=== PATIENT | male | born 1945 | race Caucasian/White ===

== ENCOUNTER 2021-06-26 16:18 | Inpatient (IN) | payer BC, MEDICARE ==
[2021-06-26] MEDS ORDERED: SODIUM CHLORIDE 0.9% 1,000 ML IV STA (16:27)
--- NOTE | 2021-06-26 16:33 | ED ---
General Adult HPI - General Chief complaint: Fall Stated complaint: Fall Time Seen by Provider: 06/26/21 16:20 Source: patient, EMS, RN notes reviewed Mode of arrival: EMS Limitations: physical limitation - History of Present Illness Initial comments: Patient is a pleasant 76-year-old male presenting to the emergency department following a fall. Patient was on a stepladder, approximately 10 feet high. Patient was cutting a branch down with a branch hit the ladder and patient fell onto his left side on the grass. Patient unclear if he struck his head. No headache. No confusion. No loss of consciousness. Minimal neck discomfort. Patient does have some discomfort left ribs, but increases with deep breaths. No dyspnea. No abdominal pain. No back pain. Patient also has left hip pain that is mild at this time however increases with movement. Patient was given 7 of morphine by EMS. Patient does not want further pain medication at this time. - Related Data Home Medications Medication Instructions Recorded Confirmed Garlic 100 mg PO DAILY 06/26/21 06/26/21 Turmeric Root Extract [Turmeric] 500 mg PO DAILY 06/26/21 06/26/21 Ubidecarenone [Co Q-10] 100 mg PO DAILY 06/26/21 06/26/21 Vitamin B Complex 1 cap PO DAILY 06/26/21 06/26/21 Zinc Gluconate [Zinc] 50 mg PO DAILY 06/26/21 06/26/21 Allergies Allergy/AdvReac Type Severity Reaction Status Date / Time No Known Allergies Allergy Verified 06/26/21 17:33 Review of Systems ROS Statement: Those systems with pertinent positive or pertinent negative responses have been documented in the HPI. ROS Other: All systems not noted in ROS Statement are negative. Constitutional: Denies: fever Eyes: Denies: eye pain ENT: Denies: ear pain Respiratory: Denies: cough, dyspnea Cardiovascular: Reports: as per HPI Endocrine: Denies: fatigue Gastrointestinal: Denies: abdominal pain Genitourinary: Denies: dysuria Musculoskeletal: Reports: as per HPI. Denies: back pain Skin: Denies: rash Neurological: Denies: headache, weakness, confusion Past Medical History Past Medical History: Cancer Additional Past Medical History / Comment(s): hx polyps, hx skin cancer History of Any Multi-Drug Resistant Organisms: None Reported Past Surgical History: Hernia Repair, Orthopedic Surgery Additional Past Surgical History / Comment(s): fx left arm-plate later removed Past Anesthesia/Blood Transfusion Reactions: No Reported Reaction Past Psychological History: No Psychological Hx Reported Past Alcohol Use History: Occasional Past Drug Use History: None Reported - Past Family History Father Family Medical History: Cancer Sister(s) Family Medical History: Cancer General Exam Limitations: physical limitation General appearance: alert, in no apparent distress Head exam: Present: other (Minimal abrasion left eyebrow) Eye exam: Present: normal appearance, PERRL, EOMI. Absent: nystagmus ENT exam: Present: normal oropharynx Neck exam: Present: tenderness (Minimal diffuse tenderness. C-collar is present.) Respiratory exam: Present: normal lung sounds bilaterally, chest wall tenderness (Left lateral) Cardiovascular Exam: Present: regular rate, normal rhythm GI/Abdominal exam: Present: soft, tenderness (Mild tenderness left upper quadrant) Extremities exam: Present: tenderness (Left lateral hip limiting range of motion). Absent: calf tenderness Back exam: Present: normal inspection. Absent: vertebral tenderness Neurological exam: Present: alert, oriented X3, CN II-XII intact. Absent: motor sensory deficit Expanded Sensory exam: Upper Extremity Light Touch: Normal, Lower Extremity Light Touch: Normal Motor strength exam: RUE: 5, LUE: 5, RLE: 5, LLE: 5 Eye Response: (4) open spontaneously Motor Response: (6) obeys commands Verbal Response: (5) oriented Psychiatric exam: Present: normal affect, normal mood Skin exam: Present: abrasion (Minimal left eyebrow) Course Vital Signs 06/26/21 06/26/21 16:19 18:39 Temperature 98.9 F Pulse Rate 99 98 Respiratory 18 18 Rate Blood Pressure 164/83 142/82 O2 Sat by Pulse 97 96 Oximetry - Reevaluation(s) Reevaluation #1: 06/26/21 18:41 Dr. Payton has been paged for admission 06/26/21 18:45 Case was discussed with Dr. Del Angel, who will admit. EKG Findings - EKG Comments: EKG Findings:: Sinus rhythm with rate of 96. NM 169. QRS 90. QT 361. QTC 414. Normal axis. Normal QRS. No acute ST change. Medical Decision Making - Medical Decision Making Patient reevaluated and updated. - Lab Data Result diagrams: 06/26/21 16:39 06/26/21 16:30 Lab Results 06/26/21 06/26/21 06/26/21 Range/Units 16:30 16:39 16:40 WBC 15.4 H (3.8-10.6) k/uL RBC 3.80 L (4.30-5.90) m/uL Hgb 12.1 L (13.0-17.5) gm/dL Hct 36.5 L (39.0-53.0) % MCV 96.0 (80.0-100.0) fL MCH 31.8 (25.0-35.0) pg MCHC 33.2 (31.0-37.0) g/dL RDW 13.3 (11.5-15.5) % Plt Count 117 L (150-450) k/uL MPV 8.5 Neutrophils % 81 % Lymphocytes % 13 % Monocytes % 3 % Eosinophils % 1 % Basophils % 0 % Neutrophils # 12.5 H (1.3-7.7) k/uL Lymphocytes # 2.1 (1.0-4.8) k/uL Monocytes # 0.5 (0-1.0) k/uL Eosinophils # 0.2 (0-0.7) k/uL Basophils # 0.0 (0-0.2) k/uL Sodium 134 L (137-145) mmol/L Potassium 3.7 (3.5-5.1) mmol/L Chloride 107 (98-107) mmol/L Carbon Dioxide 21 L (22-30) mmol/L Anion Gap 6 mmol/L BUN 23 H (9-20) mg/dL Creatinine 1.23 (0.66-1.25) mg/dL Est GFR (CKD-EPI)AfAm 66 (>60 ml/min/1.73 sqM) Est GFR (CKD-EPI)NonAf 57 (>60 ml/min/1.73 sqM) Glucose 117 H (74-99) mg/dL Calcium 9.0 (8.4-10.2) mg/dL Total Bilirubin 0.5 (0.2-1.3) mg/dL AST 62 H (17-59) U/L ALT 37 (4-49) U/L Alkaline Phosphatase 69 (38-126) U/L Total Protein 6.8 (6.3-8.2) g/dL Albumin 3.9 (3.5-5.0) g/dL Serum Alcohol <10 mg/dL Blood Type A Positive Blood Type Confirm Blood Type Recheck No Previous Record Bld Type Recheck Status CABO Indicated Antibody Screen NEGATIVE Spec Expiration Date 06/29/2021 - 233906/26/21 Range/Units 16:45 WBC (3.8-10.6) k/uL RBC (4.30-5.90) m/uL Hgb (13.0-17.5) gm/dL Hct (39.0-53.0) % MCV (80.0-100.0) fL MCH (25.0-35.0) pg MCHC (31.0-37.0) g/dL RDW (11.5-15.5) % Plt Count (150-450) k/uL MPV Neutrophils % % Lymphocytes % % Monocytes % % Eosinophils % % Basophils % % Neutrophils # (1.3-7.7) k/uL Lymphocytes # (1.0-4.8) k/uL Monocytes # (0-1.0) k/uL Eosinophils # (0-0.7) k/uL Basophils # (0-0.2) k/uL Sodium (137-145) mmol/L Potassium (3.5-5.1) mmol/L Chloride (98-107) mmol/L Carbon Dioxide (22-30) mmol/L Anion Gap mmol/L BUN (9-20) mg/dL Creatinine (0.66-1.25) mg/dL Est GFR (CKD-EPI)AfAm (>60 ml/min/1.73 sqM) Est GFR (CKD-EPI)NonAf (>60 ml/min/1.73 sqM) Glucose (74-99) mg/dL Calcium (8.4-10.2) mg/dL Total Bilirubin (0.2-1.3) mg/dL AST (17-59) U/L ALT (4-49) U/L Alkaline Phosphatase (38-126) U/L Total Protein (6.3-8.2) g/dL Albumin (3.5-5.0) g/dL Serum Alcohol mg/dL Blood Type Blood Type Confirm A Positive Blood Type Recheck Bld Type Recheck Status Antibody Screen Spec Expiration Date - Radiology Data Radiology results: report reviewed (CT brain and cervical spine show no acute process. Computed tomography scan chest abdomen pelvis shows small left pneumohemothorax as well as 11th rib fracture as discussed with radiologist), image reviewed (Chest x-ray and pelvis x-ray shows no acute process) Disposition Clinical Impression: Fall, Rib fracture, Hemopneumothorax on left Disposition: ADMITTED IP TO THIS HOSP Is patient prescribed a controlled substance at d/c from ED?: No Referrals: None,Stated [Primary Care Provider] - 1-2 days Time of Disposition: 18:41
[2021-06-26 17:02] LABS: Basophils % (A) 0 %; Eosinophils # (A) 0.2 k/uL (0-0.7); Eosinophils % (A) 1 %; HCT 36.5 % (39.0-53.0); HGB 12.1 gm/dL (13.0-17.5); Lymphocytes # (A) 2.1 k/uL (1.0-4.8); Lymphocytes % (A) 13 %; MCH 31.8 pg (25.0-35.0); MCHC 33.2 g/dL (31.0-37.0); Mean Platelet Volume 8.5; Monocytes # (A) 0.5 k/uL (0-1.0); Monocytes % (A) 3 %; Neutrophils # (A) 12.5 k/uL (1.3-7.7); Neutrophils % (A) 81 %; Platelet Count 117 k/uL (150-450); RDW 13.3 % (11.5-15.5); WBC 15.4 k/uL (3.8-10.6)
[2021-06-26] MEDS ORDERED: MORPHINE SULFATE 4 MG/ML SYRINGE IVP STA ×3 (17:05→18:39)
[2021-06-26 17:08] LABS: ALT 37 U/L (4-49); AST 62 U/L (17-59); African American GFR (CKD) 66 (>60 ml/min/1.73 sqM); Albumin 3.9 g/dL (3.5-5.0); Alcohol <10 mg/dL; Alkaline Phosphatase 69 U/L (38-126); Anion Gap 6 mmol/L; Blood Urea Nitrogen 23 mg/dL (9-20); Carbon Dioxide 21 mmol/L (22-30); Chloride 107 mmol/L (98-107); Glucose 117 mg/dL (74-99); Non-African American GFR(CKD) 57 (>60 ml/min/1.73 sqM); Potassium 3.7 mmol/L (3.5-5.1); Sodium 134 mmol/L (137-145); Total Bilirubin 0.5 mg/dL (0.2-1.3); Total Protein 6.8 g/dL (6.3-8.2)
--- NOTE | 2021-06-26 17:57 | XR ---
EXAMINATION TYPE: XR Hip LT and AP Pelvis DATE OF EXAM: 06/26/2021 COMPARISON: NONE HISTORY: Pain TECHNIQUE: 3 views FINDINGS: The pelvic ring is intact. Proximal left femur and hip joint appear normal. Sacroiliac join ts are intact. Hip joint spaces are fairly normal. IMPRESSION: Negative pelvis and left hip exam.
--- NOTE | 2021-06-26 17:58 | XR ---
EXAMINATION TYPE: XR chest 1V portable DATE OF EXAM: 06/26/2021 COMPARISON: NONE HISTORY: Pain TECHNIQUE: 2 views FINDINGS: There is no heart failure nor confluent pneumonic infiltrate. Costophrenic angles are clear . There are chest leads. IMPRESSION: No active cardiopulmonary disease. Normal heart.
--- NOTE | 2021-06-26 18:16 | CT ---
EXAMINATION TYPE: CT brain williamine wo con DATE OF EXAM: 06/26/2021 COMPARISON: None HISTORY: Trauma, fall from 10 foot ladder, landing on left side. Hip and rib pain. CT DLP: 1451.8 mGycm Automated exposure control for dose reduction was used. Ventricles have normal size. There is no mass effect or midline shift. There is no sign of intracrani al hemorrhage. There is focal scalp soft tissue swelling in the left frontal and temporal region. Santhosh varium is intact. The skull base is intact. There is normal aeration of the mastoid sinuses. The cervical vertebra have normal alignment. The posterior elements are intact. Disc spaces are fairl y normal. There is no compression fracture. Prevertebral soft tissues are intact. IMPRESSION: There is mild left sided scalp soft tissue swelling. No acute intracranial abnormality. Minor degenerative changes in the cervical spine. No fracture.
--- NOTE | 2021-06-26 18:41 | CT ---
EXAMINATION TYPE: CT ChestAbdPelvis w con DATE OF EXAM: 06/26/2021 COMPARISON: None HISTORY: Trauma, fall from 10 foot ladder, landing on left side. Hip and rib pain. CT DLP: 1563.5 mGycm Automated exposure control for dose reduction was used. CONTRAST: Performed with IV Contrast, patient injected with 100 mL of Isovue 300. Images obtained from the thoracic inlet to the floor of the pelvis with IV contrast. There is infiltrate and atelectasis posterior left lower lobe. Heart size is normal. There is no medi astinal adenopathy. There are no hilar masses. There is very small left pneumothorax less than 3%. Liver spleen stomach and pancreas appear intact. The bile ducts are not dilated. Gallbladder appears normal. There is no adrenal mass. Kidneys show satisfactory contrast opacification. There is no hydronephrosi s. Ureters are not dilated. Bladder distends smoothly. There is no inguinal hernia. There is some april ear density in the pelvis on the left lateral pelvic sidewall consistent with hemorrhage. This measur es up to 1 cm in thickness. There is no retroperitoneal adenopathy. There is no mesenteric edema. No ascites or free air. No sign of a bowel obstruction. Appendix is posterior and appears normal. Thoracic and lumbar vertebra appear intact. No compression fracture. There is possible hairline fract ure of the anterior left acetabulum. There is fracture of the lateral mass of the sacrum on the left side adjacent to the sacroiliac joint. There is left ischium fracture. There is fracture of the poste rior left 11th rib. No displacement. IMPRESSION: Acute fracture left posterior 11th rib. There is infiltrate and atelectasis is at both lung bases. Sm all left side pneumothorax. Small left pleural effusion consistent with hemothorax. Exam was discusse d with emergency room attending staff at 6:30 PM. There is nondisplaced fracture of the lateral mass of the sacrum on the left side as well as very lik christine a nondisplaced hairline left acetabular fracture. There is fracture of the left ischium.
[2021-06-26] MEDS ORDERED: NALOXONE 0.4 MG/ML 1 ML VIAL IV PRN (18:45)
[2021-06-26] MEDS ORDERED: ONDANSETRON 4 MG/2 ML VIAL IVP PRN (18:45)
[2021-06-26] MEDS ORDERED: HYDROcodone/APAP 5-325MG 1 EACH TAB PO PRN (18:45)
[2021-06-26] MEDS ORDERED: HYDROmorphone 1 MG/ML 1 ML SYRINGE IVP STA (18:47)
[2021-06-26] MEDS: HYDROcodone/APAP 5-325MG 1 EACH TAB PO PRN (22:05)
[2021-06-26 22:14] LABS: Appearance,Urine Clear (Clear); Bilirubin,Urine Negative (Negative); Blood,Urine Small (Negative); Color,Urine Light Yellow; Glucose,Urine (UA) Negative (Negative); Ketones,Urine 1+ (Negative); Leukocyte Esterase,Urine Negative (Negative); Mucus,Urine Rare /hpf; Nitrite,Urine Negative (Negative); Protein,Urine Trace (Negative); RBC,Urine 1 /hpf (0-5); Specific Gravity,Urine 1.043 (1.001-1.035); Urobilinogen,Urine <2.0 mg/dL (<2.0); WBC,Urine 2 /hpf (0-5)
[2021-06-26 22:21] LABS: Amphetamine Screen,Urine Not Detected (NotDetected); Barbiturate Screen,Urine Not Detected (NotDetected); Benzodiazepines Screen,Urine Not Detected (NotDetected); Cocaine Screen,Urine Not Detected (NotDetected); Methadone Screen, Urine Not Detected (NotDetected); Opiate Screen,Urine Detected (NotDetected); Oxycodone Screen, Urine Not Detected (NotDetected); Phencyclidine Screen,Urine Not Detected (NotDetected); Tricyclic Antidepressant,Urine Not Detected (NotDetected); Urn Cannabinoid Scrn Not Detected (NotDetected)
[2021-06-27] MEDS: HYDROcodone/APAP 5-325MG 1 EACH TAB PO PRN ×5 (01:19→19:52)
[2021-06-27 07:10] LABS: INR 0.9 (<1.2); Partial Thromboplastin Time 21.3 sec (22.0-30.0); Prothrombin Time 9.9 sec (9.0-12.0)
[2021-06-27 09:13] LABS: Basophils # (A) 0.02 X 10*3/uL (0.00-0.10); Basophils % (A) 0.2 %; Eosinophils # (A) 0.05 X 10*3/uL (0.04-0.35); Eosinophils % (A) 0.5 %; HCT 34.2 % (39.6-50.0); HGB 10.8 g/dL (13.0-17.0); Immature Grans, Automated 0.4 %; Lymphocytes % (A) 20.3 %; MCH 30.3 pg (27.0-32.0); MCHC 31.6 g/dL (32.0-37.0); MCV 96.1 fL (80.0-97.0); Mean Platelet Volume 10.5 fL (9.5-12.2); Monocytes # (A) 0.73 X 10*3/uL (0.20-1.00); Monocytes % (A) 7.4 %; NRBC Per 100 WBC 0 /100 WBCS (0.0-0.0); Neutrophils # (A) 6.99 X 10*3/uL (1.80-7.70); Neutrophils % (A) 71.2 %; Platelet Count 193 X 10*3/uL (140-440); RBC 3.56 X 10*6/uL (4.40-5.60); RDW 13.4 % (11.5-14.5); WBC 9.83 X 10*3/uL (4.50-10.00)
[2021-06-27] MEDS: HYDROmorphone 1 MG/ML 1 ML SYRINGE IVP PRN ×3 (10:44→21:45)
--- NOTE | 2021-06-27 12:32 | P.CNPUL ---
History of Present Illness Consult date: 06/27/21 Requesting physician: Brenden Payton Reason for consult: chest pain, abnormal CXR/CT Chief complaint: Left-sided chest pain, trauma History of present illness: This is a very pleasant 76-year-old male patient with known history of skin cancer, occasional alcohol use, previous hernia repair. Yesterday he was out in chart up on a step ladder approximately 10 feet high and was cutting a branch down from the tree. When the parents follow his letter knocked him off the ladder he landed on his left side into the grass. He presented here with left- sided chest discomfort worsening with deep breathing. He also had left hip pain. Unclear if he hit his head. Denied any loss of consciousness. Left hip x-rays revealed no evidence of fracture. Chest x-ray revealed no active cardiopulmonary process. Normal heart. Computed tomography scan of the head and C-spine revealed mild left sided scalp soft tissue swelling. No acute intracranial abnormalities. Minor degenerative changes in the cervical spine. No fracture. Computed tomography scan of the chest abdomen and pelvis revealed acute fracture of the left posterior 11th rib. Infiltrate and atelectasis at the lung bases. Small left-sided pneumothorax. Small left pleural effusion consistent with hemothorax. There is a nondisplaced fracture of the lateral mass of the sacrum on the left side as well as a very likely a nondisplaced hairline left acetabular fracture. There is fracture of the left ischium. EKG reveals sinus rhythm without acute ST or T wave abnormalities. White count 9.8. Hemoglobin 10.8. Platelet count 193. Urine drug screen positive for opiates. The patient did receive morphine sulfate via EMS. Serum alcohol level less than 10. The patient is seen today in consultation on the regular medical floor. He is currently sitting up at the bedside. Awake and alert in no acute distress. He is still having quite a bit of left-sided chest discomfort. Left hip pain. He is being treated with [place] [id number] one to 2 tablets as needed. Alternating with Dilaudid. Review of Systems REVIEW OF SYSTEMS: CONSTITUTIONAL: Denies any recent significant weight loss or weight gain. EYES: Denies change in vision. EARS, NOSE, MOUTH, THROAT: Denies headaches, denies sore throat. CARDIOVASCULAR: Positive for left-sided chest wall pain, no palpitations or syncopal episodes. RESPIRATORY: Denies shortness of breath, cough, congestion or hemoptysis. GASTROINTESTINAL: Denies change in appetite, denies abdominal pain GENITOURINARY: Denies hematuria, denies infections. MUSKULOSKELETAL: Positive for left-sided chest pain, left hip pain INTEGUMENTARY: Denies rash, denies eczema. NEUROLOGICAL: Denies recent memory loss, no recent seizure activity. PSYCHIATRIC: Denies anxiety, denies depression. HEMATOLOGIC/LYMPHATIC: Denies anemia, denies enlarged lymph nodes. Past Medical History Past Medical History: Cancer Additional Past Medical History / Comment(s): hx polyps, hx skin cancer, covid History of Any Multi-Drug Resistant Organisms: None Reported Past Surgical History: Hernia Repair, Orthopedic Surgery Additional Past Surgical History / Comment(s): fx left arm-plate later removed Past Anesthesia/Blood Transfusion Reactions: No Reported Reaction Past Psychological History: No Psychological Hx Reported Smoking Status: Former smoker Past Alcohol Use History: Occasional Additional Past Alcohol Use History / Comment(s): Quit smoking in Past Drug Use History: None Reported - Past Family History Father Family Medical History: Cancer Sister(s) Family Medical History: Cancer Medications and Allergies Home Medications Medication Instructions Recorded Confirmed Type Garlic 100 mg PO DAILY 06/26/21 06/26/21 History Turmeric Root Extract [Turmeric] 500 mg PO DAILY 06/26/21 06/26/21 History Ubidecarenone [Co Q-10] 100 mg PO DAILY 06/26/21 06/26/21 History Vitamin B Complex 1 cap PO DAILY 06/26/21 06/26/21 History Zinc Gluconate [Zinc] 50 mg PO DAILY 06/26/21 06/26/21 History Allergies Allergy/AdvReac Type Severity Reaction Status Date / Time No Known Allergies Allergy Verified 06/26/21 17:33 Physical Exam Vitals: Vital Signs Temp Pulse Pulse Resp BP BP Pulse Ox 06/27/21 08:23 97.4 F L 78 12 123/65 95 06/27/21 05:15 97.6 F 76 16 133/62 95 06/27/21 01:20 98.1 F 94 16 165/81 95 06/26/21 23:04 90 20 112/80 94 L 06/26/21 20:45 108 H 18 124/74 96 06/26/21 18:39 98 18 142/82 96 06/26/21 16:19 98.9 F 99 18 164/83 97 Intake and Output 06/26/21 06/27/21 06/27/21 22:59 06:59 14:59 Intake Total 120 Balance 120 Intake: Oral 120 Other: # Voids 1 Weight 90.718 kg GENERAL EXAM: Alert, very pleasant 76-year-old gentleman, on room air, fairly comfortable in no apparent distress. HEAD: Abrasion over the right eye. Normocephalic. EYES: Normal reaction of pupils, equal size. NOSE: Clear with pink turbinates. THROAT: No erythema or exudates. NECK: No masses, no JVD. CHEST: No chest wall deformity. LUNGS: Equal air entry with crackles in the left lung base. CVS: S1 and S2 normal with no audible murmur, regular rhythm. ABDOMEN: No hepatosplenomegaly, normal bowel sounds, no guarding or rigidity. SPINE: No scoliosis or deformity SKIN: No rashes CENTRAL NERVOUS SYSTEM: No focal deficits, tone is normal in all 4 extremities. EXTREMITIES: There is no peripheral edema. No clubbing, no cyanosis. Periph eral pulses are intact. Results - Laboratory Findings CBC and BMP: 06/27/21 06:23 06/26/21 16:30 PT/INR, D-dimer PT 9.9 sec (9.0-12.0) 06/27/21 06:23 INR 0.9 (<1.2) 06/27/21 06:23 Abnormal lab findings: Abnormal Labs 06/26/21 06/26/21 06/26/21 16:30 16:39 21:57 WBC 15.4 H RBC 3.80 L Hgb 12.1 L Hct 36.5 L MCHC Plt Count 117 L Neutrophils # 12.5 H APTT Sodium 134 L Carbon Dioxide 21 L BUN 23 H Glucose 117 H AST 62 H Ur Specific [place] 1.043 H Urine Protein Trace H Urine Ketones 1+ H Urine Blood Small H Urine Mucus Rare H Urine Opiates Screen Detected H 06/27/21 06/27/21 06:23 06:23 WBC RBC 3.56 L Hgb 10.8 L Hct 34.2 L MCHC 31.6 L Plt Count Neutrophils # APTT 21.3 L Sodium Carbon Dioxide BUN Glucose AST Ur Specific [place] Urine Protein Urine Ketones Urine Blood Urine Mucus Urine Opiates Screen - Diagnostic Findings Chest x-ray: image reviewed CT scan - chest: image reviewed Assessment and Plan Assessment: 1 Trauma, status post fall from stepladder approximately 10 feet. Fracture to the posterior 11th rib. Nondisplaced fracture of the lateral mass of the sacrum on the left side this was very likely a nondisplaced hairline left acetabular f racture. There is fracture of the left ischium. 2 Left-sided chest pain on inhalation secondary to trauma and 11th rib fracture along with infiltrate and atelectasis of the posterior left lower lobe. Very small left pneumothorax less than 3%. 3 Left hip pain secondary to above 4 Anemia with a presenting hemoglobin 12.1, currently 10.8 5 History of skin cancer Plan: The patient was seen and evaluated Chest x-ray, CAT scans and labs reviewed Add incentive spirometer Consult anesthesia for adequate pain control Increase his activity as tolerated Follow-up chest x-ray in the a.m. We will continue to follow and make further recommendations based on his clinical status I have personally seen and examined the patient, performed the documentation and the assessment and plan as written. Number of minutes spent on the visit: 20.
--- NOTE | 2021-06-27 13:20 | P.GSHP ---
History of Present Illness H&P Date: 06/27/21 Patient was seen and examined at 9:00 in the morning on 06/27/2021 CHIEF COMPLAINT: Fall from ladder HISTORY OF PRESENT ILLNESS: This is a 76-year-old male who initially came into the hospital after having a fall. He was using a step ladder about 10 feet high and was cutting down branches from a tree. The branch hit the ladder and knocked the ladder out from underneath him. He struck the left side of his chest and hip area on the ground which was covered and grass. He denies any loss of consciousness denies hitting his head. Denies any nausea or vomiting. He reports that it is difficult to take in a deep breath. He does report some shortness of breath. He reports that he has been having chronic lower abdominal pain prior to the fall. Reports that he still has that same pain. He is on room air satting at 90%. Patient had a computed tomography scan of chest abdomen and pelvis which did show evidence of an acute left posterior 11th rib fracture. Small left-sided pneumothorax and small left pleural effusion consistent with hemothorax. There is a nondisplaced fracture of the lateral mass of the sacrum on the left side as well as a nondisplaced hairline left acetabular fracture and a fracture of the left ischium. Patient reports that the [place] is not controlling the pain. Patient is to be evaluated by pulmonary service and orthopedic service. He is currently on a regular medical floor. Patient has been admitted to trauma service. PAST MEDICAL HISTORY: Skin cancer, colon polyps PAST SURGICAL HISTORY: Hernia repair MEDICATIONS: See list. ALLERGIES: See list. SOCIAL HISTORY: No illicit drug use. REVIEW OF SYSTEMS: CONSTITUTIONAL: Denies fever or chills. HEENT: Denies blurred vision, vision changes, or eye pain. Denies hemoptysis CARDIOVASCULAR: Denies chest pain or pressure. RESPIRATORY: No shortness of breath. GASTROINTESTINAL: See HPI for pertinent findings HEMATOLOGIC: Denies bleeding disorders. GENITOURINARY: Denies any blood in urine or increased urinary frequency. SKIN: Denies pruitis. Denies rash. PHYSICAL EXAM: VITAL SIGNS: Reviewed GENERAL: Well-developed in no acute distress. HEENT: No sclera icterus. Extraocular movements grossly intact. Moist buccal mucosa. Head is atraumatic, normocephalic. No nasal drainage. Abrasion over the right eye ABDOMEN: Soft. Nondistended. Nontender NEUROLOGIC: Alert and oriented. Cranial nerves II through XII grossly intact. Chest: No evidence of any bruising or ecchymosis along the left chest wall LABORATORY DATA: WBC 15.4 down to 9.83 hemoglobin 12.1 down to 10.8 platelets 193 INR 0.9 Sodium 134 potassium 3.7 creatinine 1.23 Lactic acid 0.8 Opiates detected Alcohol level less than 10 IMAGING: computed tomography scan of chest abdomen and pelvis which did show evidence of an acute left posterior 11th rib fracture. Small left-sided pneumothorax and small left pleural effusion consistent with hemothorax. There is a nondisplaced fracture of the lateral mass of the sacrum on the left side as well as a nondisplaced hairline left acetabular fracture and a fracture of the left ischium. Computed tomography scan of head and neck there is a mild left-sided scalp soft tissue swelling. No acute intracranial abnormality. Minor degenerative changes in the cervical spine. No fracture ASSESSMENT: 1. Trauma with fall from 10 foot ladder 2. Left 11th rib fracture 3. Very small left pneumothorax 4. Small left pleural effusion consistent with hemothorax 5. Nondisplaced fracture of the lateral mass of the sacrum and left side and a nondisplaced hairline left acetabular fracture and fracture of the left ischium PLAN: -Consults have been placed for pulmonary and orthopedic service -Continue supportive care -Add IV Dilaudid for pain control -continue regular diet -Continue IV fluids -Agree with anesthesia consult for pain management -Continue incentive spirometer -Continue to monitor oxygen saturation closely -Continue to monitor daily chest x-rays Physician Clinical Laboratory Scientist note has been reviewed by physician. Signing provider agrees with the documented findings, assessment, and plan of care. Past Medical History Past Medical History: Cancer Additional Past Medical History / Comment(s): hx polyps, hx skin cancer, covid History of Any Multi-Drug Resistant Organisms: None Reported Past Surgical History: Hernia Repair, Orthopedic Surgery Additional Past Surgical History / Comment(s): fx left arm-plate later removed Past Anesthesia/Blood Transfusion Reactions: No Reported Reaction Past Psychological History: No Psychological Hx Reported Smoking Status: Former smoker Past Alcohol Use History: Occasional Additional Past Alcohol Use History / Comment(s): Quit smoking in 1970' Past Drug Use History: None Reported - Past Family History Father Family Medical History: Cancer Sister(s) Family Medical History: Cancer Medications and Allergies Home Medications Medication Instructions Recorded Confirmed Type Garlic 100 mg PO DAILY 06/26/21 06/26/21 History Turmeric Root Extract [Turmeric] 500 mg PO DAILY 06/26/21 06/26/21 History Ubidecarenone [Co Q-10] 100 mg PO DAILY 06/26/21 06/26/21 History Vitamin B Complex 1 cap PO DAILY 06/26/21 06/26/21 History Zinc Gluconate [Zinc] 50 mg PO DAILY 06/26/21 06/26/21 History Allergies Allergy/AdvReac Type Severity Reaction Status Date / Time No Known Allergies Allergy Verified 06/26/21 17:33 Surgical - Exam Vital Signs Temp Pulse Resp BP Pulse Ox 98.9 F 99 18 164/83 97 06/26/21 16:19 06/26/21 16:19 06/26/21 16:19 06/26/21 16:19 06/26/21 16:19 Results - Labs 06/27/21 06:23 06/26/21 16:30 Abnormal Lab Results - Last 24 Hours (Table) 06/26/21 06/26/21 06/26/21 Range/Units 16:30 16:39 21:57 WBC 15.4 H (3.8-10.6) k/uL RBC 3.80 L (4.30-5.90) m/uL Hgb 12.1 L (13.0-17.5) gm/dL Hct 36.5 L (39.0-53.0) % MCHC (32.0-37.0) g/dL Plt Count 117 L (150-450) k/uL Neutrophils # 12.5 H (1.3-7.7) k/uL APTT (22.0-30.0) sec Sodium 134 L (137-145) mmol/L Carbon Dioxide 21 L (22-30) mmol/L BUN 23 H (9-20) mg/dL Glucose 117 H (74-99) mg/dL AST 62 H (17-59) U/L Ur Specific [place] 1.043 H (1.001-1.035) Urine Protein Trace H (Negative) Urine Ketones 1+ H (Negative) Urine Blood Small H (Negative) Urine Mucus Rare H (None) /hpf Urine Opiates Screen Detected H (NotDetected) 06/27/21 06/27/21 Range/Units 06:23 06:23 WBC (3.8-10.6) k/uL RBC 3.56 L (4.30-5.90) m/uL Hgb 10.8 L (13.0-17.5) gm/dL Hct 34.2 L (39.0-53.0) % MCHC 31.6 L (32.0-37.0) g/dL Plt Count (150-450) k/uL Neutrophils # (1.3-7.7) k/uL APTT 21.3 L (22.0-30.0) sec Sodium (137-145) mmol/L Carbon Dioxide (22-30) mmol/L BUN (9-20) mg/dL Glucose (74-99) mg/dL AST (17-59) U/L Ur Specific [place] (1.001-1.035) Urine Protein (Negative) Urine Ketones (Negative) Urine Blood (Negative) Urine Mucus (None) /hpf Urine Opiates Screen (NotDetected) Diabetes panel 06/26/21 Range/Units 16:30 Sodium 134 L (137-145) mmol/L Potassium 3.7 (3.5-5.1) mmol/L Chloride 107 (98-107) mmol/L Carbon Dioxide 21 L (22-30) mmol/L BUN 23 H (9-20) mg/dL Creatinine 1.23 (0.66-1.25) mg/dL Glucose 117 H (74-99) mg/dL Calcium 9.0 (8.4-10.2) mg/dL AST 62 H (17-59) U/L ALT 37 (4-49) U/L Alkaline Phosphatase 69 (38-126) U/L Total Protein 6.8 (6.3-8.2) g/dL Albumin 3.9 (3.5-5.0) g/dL Calcium panel 06/26/21 Range/Units 16:30 Calcium 9.0 (8.4-10.2) mg/dL Albumin 3.9 (3.5-5.0) g/dL Pituitary panel 06/26/21 Range/Units 16:30 Sodium 134 L (137-145) mmol/L Potassium 3.7 (3.5-5.1) mmol/L Chloride 107 (98-107) mmol/L Carbon Dioxide 21 L (22-30) mmol/L BUN 23 H (9-20) mg/dL Creatinine 1.23 (0.66-1.25) mg/dL Glucose 117 H (74-99) mg/dL Calcium 9.0 (8.4-10.2) mg/dL Adrenal panel 06/26/21 Range/Units 16:30 Sodium 134 L (137-145) mmol/L Potassium 3.7 (3.5-5.1) mmol/L Chloride 107 (98-107) mmol/L Carbon Dioxide 21 L (22-30) mmol/L BUN 23 H (9-20) mg/dL Creatinine 1.23 (0.66-1.25) mg/dL Glucose 117 H (74-99) mg/dL Calcium 9.0 (8.4-10.2) mg/dL Total Bilirubin 0.5 (0.2-1.3) mg/dL AST 62 H (17-59) U/L ALT 37 (4-49) U/L Alkaline Phosphatase 69 (38-126) U/L Total Protein 6.8 (6.3-8.2) g/dL Albumin 3.9 (3.5-5.0) g/dL
--- NOTE | 2021-06-27 14:17 | P.CNOR ---
History of Present Illness - [facility] Consult date: 06/27/21 Requesting physician: Gemma Elise Consult reason: fracture (Nondisplaced fracture of the anterior left acetabulum, nondisplaced fracture of the lateral mass of the sacrum, fracture of the left posterior 11th rib and left ischium fracture) History of present illness: Patient is a very pleasant 76-year-old male who is seen and examined at bedside for further following a 8 to 10 foot fall from a ladder while cutting a tree resulting in multiple injuries. Multiple imaging modalities were taken in the emergency department which showed evidence of nondisplaced fracture of the anterior left acetabulum, nondisplaced fracture of the lateral mass of the sacrum, fracture of the left posterior 11th rib and left ischium fracture. He has had difficulty mobility and ambulation since that time. He states he has significant pain within his pelvis with any mobilization. His pain is better controlled while at rest. He is currently being seen by pulmonology. He was diagnosed with a small left-sided pneumothorax and small left pleural effusion. He has been using an incentive spirometer. He continues to be seen by trauma surgery. He states he did bump his left forehead, fall but denies loss of consciousness. He does have an abrasion over his left forehead. He states prior to the fall he has not had a significant difficulty with his lower extremities bilaterally. He does admit to bilateral lower extremity neuropathy which has been ongoing for an extended period of time. He states the neuropathy started in his feet and has descended over time. He denies diabetes mellitus. His other medical diagnoses include history of skin cancer. He has been taking oral Equinunk and IV Dilaudid as prescribed as you for pain control. Past Medical History Past Medical History: Cancer Additional Past Medical History / Comment(s): hx polyps, hx skin cancer, covid History of Any Multi-Drug Resistant Organisms: None Reported Past Surgical History: Hernia Repair, Orthopedic Surgery Additional Past Surgical History / Comment(s): fx left arm-plate later removed Past Anesthesia/Blood Transfusion Reactions: No Reported Reaction Past Psychological History: No Psychological Hx Reported Smoking Status: Former smoker Past Alcohol Use History: Occasional Additional Past Alcohol Use History / Comment(s): Quit smoking in Past Drug Use History: None Reported - Past Family History Father Family Medical History: Cancer Sister(s) Family Medical History: Cancer Medications and Allergies Home Medications Medication Instructions Recorded Confirmed Type Garlic 100 mg PO DAILY 06/26/21 06/26/21 History Turmeric Root Extract [Turmeric] 500 mg PO DAILY 06/26/21 06/26/21 History Ubidecarenone [Co Q-10] 100 mg PO DAILY 06/26/21 06/26/21 History Vitamin B Complex 1 cap PO DAILY 06/26/21 06/26/21 History Zinc Gluconate [Zinc] 50 mg PO DAILY 06/26/21 06/26/21 History Allergies Allergy/AdvReac Type Severity Reaction Status Date / Time No Known Allergies Allergy Verified 06/26/21 17:33 Physical Examination Physical exam: Patient is awake, alert, and oriented 3 Vital signs stable Adequate chest excursion with deep inspiration and expiration Abdomen soft nontender Patient is currently lying flat in bed Patient currently is unwilling to roll over in bed independently or with assistance for visualization of his thoracic spine, lumbar spine, and sacrum Dorsiflexion, plantarflexion, and extensor hallucis longus positive sustained bilaterally Some decreased sensation with palpation of the bilateral feet and calves Patient is able to perform slow gentle range of motion with hip flexion bilaterally. Some increased pain at the left hip with internal and external rotation of the left hip No pain with internal and external rotation of the right hip No lower extremity hyperreflexia bilaterally No signs or symptoms of DVT; no calf pain Vascularly intact lower extremities Evidence of a small abrasion over the left forehead Results Pertinent studies: CT of the chest, abdomen, pelvis taken on 06/26/2021 reviewed for orthopedic purposes: Possible hairline nondisplaced fracture of the anterior left acetabulum; nondisplaced fracture of the lateral mass of the sacrum on the left adjacent to the sacroiliac joint; left ischium fracture; fracture of the posterior left 11th rib; no evidence of thoracic or lumbar compression fracture deformity X-ray of the left hip and pelvis taken on 06/26/2021: Proximal left femur and hip joint appeared normal; his joint spacing is fairly normal - Labs Labs: Abnormal Lab Results - Last 24 Hours (Table) 06/26/21 06/26/21 06/26/21 Range/Units 16:30 16:39 21:57 WBC 15.4 H (3.8-10.6) k/uL RBC 3.80 L (4.30-5.90) m/uL Hgb 12.1 L (13.0-17.5) gm/dL Hct 36.5 L (39.0-53.0) % MCHC (32.0-37.0) g/dL Plt Count 117 L (150-450) k/uL Neutrophils # 12.5 H (1.3-7.7) k/uL APTT (22.0-30.0) sec Sodium 134 L (137-145) mmol/L Carbon Dioxide 21 L (22-30) mmol/L BUN 23 H (9-20) mg/dL Glucose 117 H (74-99) mg/dL AST 62 H (17-59) U/L Ur Specific [place] 1.043 H (1.001-1.035) Urine Protein Trace H (Negative) Urine Ketones 1+ H (Negative) Urine Blood Small H (Negative) Urine Mucus Rare H (None) /hpf Urine Opiates Screen Detected H (NotDetected) 06/27/21 06/27/21 Range/Units 06:23 06:23 WBC (3.8-10.6) k/uL RBC 3.56 L (4.30-5.90) m/uL Hgb 10.8 L (13.0-17.5) gm/dL Hct 34.2 L (39.0-53.0) % MCHC 31.6 L (32.0-37.0) g/dL Plt Count (150-450) k/uL Neutrophils # (1.3-7.7) k/uL APTT 21.3 L (22.0-30.0) sec Sodium (137-145) mmol/L Carbon Dioxide (22-30) mmol/L BUN (9-20) mg/dL Glucose (74-99) mg/dL AST (17-59) U/L Ur Specific [place] (1.001-1.035) Urine Protein (Negative) Urine Ketones (Negative) Urine Blood (Negative) Urine Mucus (None) /hpf Urine Opiates Screen (NotDetected) H & H 06/26/21 06/27/21 Range/Units 16:39 06:23 Hgb 12.1 L 10.8 L (13.0-17.5) gm/dL Hct 36.5 L 34.2 L (39.0-53.0) % Coagulation 06/27/21 Range/Units 06:23 INR 0.9 (<1.2) Result Diagrams: 06/27/21 06:23 06/26/21 16:30 Assessment and Plan Assessment: Assessment: Acute traumatic pelvic pain and sacral pain Status post fall from ladder approximately 8-10 feet Nondisplaced fracture of the anterior left acetabulum Nondisplaced fracture of the lateral mass of the sacrum Left ischium fracture Left posterior 11th rib fracture Difficulty with mobilization and ambulation due to pain and injury Small left-sided pneumothorax and small left pleural effusion History of bilateral lower extremity neuropathy History of skin cancer (1) Fall from ladder Current Visit: Yes Status: Acute Code(s): W11.XXXA - FALL ON AND FROM LADDER, INITIAL ENCOUNTER SNOMED Code(s): 85806403 (2) Sacral fracture, closed Current Visit: Yes Status: Acute Code(s): S32.10XA - UNSP FRACTURE OF SACRUM, INIT ENCNTR FOR CLOSED FRACTURE SNOMED Code(s): 684142004 (3) Left acetabular fracture Current Visit: Yes Status: Acute Code(s): S32.402A - UNSP FRACTURE OF LEFT ACETABULUM, INIT FOR CLOS FX SNOMED Code(s): 79349441 (4) Lower extremity neuropathy Current Visit: Yes Status: Acute Code(s): G57.90 - UNSPECIFIED MONONEUROPATHY OF UNSPECIFIED LOWER LIMB SNOMED Code(s): 706041671 (5) History of skin cancer Current Visit: Yes Status: Acute Code(s): Z85.828 - PERSONAL HISTORY OF OTHER MALIGNANT NEOPLASM OF SKIN SNOMED Code(s): 834581298 (6) Difficulty in walking Current Visit: Yes Status: Acute Code(s): R26.2 - DIFFICULTY IN WALKING, NOT ELSEWHERE CLASSIFIED SNOMED Code(s): 104126693 (7) Fractured ischium Current Visit: Yes Status: Acute Code(s): S32.609A - UNSP FRACTURE OF UNSP ISCHIUM, INIT FOR CLOS FX SNOMED Code(s): 938344712 (8) Hemopneumothorax on left Current Visit: Yes Status: Acute Code(s): J94.2 - HEMOTHORAX SNOMED Code(s): 80956704 (9) Rib fracture Current Visit: Yes Status: Acute Code(s): S22.39XA - FRACTURE OF ONE RIB, UNSP SIDE, INIT FOR CLOS FX SNOMED Code(s): 21747511 Plan: Plan: 1. Patient has been discussed in detail with Dr. Anderson Packer and we have reviewed the patient's imaging together. Patient sustained a fall from a ladder falling approximately 8-10 feet resulting in multiple injuries at that time including nondisplaced fracture of the anterior left acetabulum, nondisplaced fracture of the lateral mass of the sacrum, fracture of the left posterior 11th rib and left ischium fracture. At this time, we will plan to continue with conservative treatment for his multiple fractures. We are not currently planning for surgical intervention in regards to his multiple fractures as the patient should heal over time with conservative treatment. He will be strict nonweightbearing on the left lower extremity. He may use a walker to aid in ambulation as needed. A prescription has been written, signed, and provided to case management to obtain this walker. He may weight-bear as tolerated on the right lower extremity. Currently it is unclear whether the patient will be discharged home once cleared by other medical providers or discharged to rehabilitation facility. Has significant difficulty with any mobility or ambulation including significant difficulty with even rolling over in bed. He could benefit by discharged to a rehabilitation facility prior to returning home following discharge. We did discuss that from an orthopedic standpoint, patient is clear for discharge once cleared by other medical providers. We will plan to have him follow-up in the outpatient setting for further evaluation. Patient may follow-up with Jorge Alberto Reza PA-C or Dr. Anderson Packer at [facility] in 2-3 weeks following discharge. 2. Patient will continue be seen by multiple other medical providers including trauma surgery and pulmonology for his other medical diagnoses including small left-sided pneumothorax and small left pleural effusion. 3. Patient may continue with pain control with oral Equinunk and Dilaudid as prescribed as needed for control of the symptoms. Time with Patient: Greater than 30 (Including obtaining history, physical examination, reviewing of imaging, and dictation.)
[2021-06-27] MEDS: HEPARIN SODIUM,PORCINE/PF 5,000 UNIT/0.5 ML SYRINGE SQ SCH ×2 (14:59→21:46)
[2021-06-27] MEDS: PANTOPRAZOLE 40 MG TABLET PO SCH (14:59)
--- NOTE | 2021-06-27 15:18 | P.CON ---
Consult Note - . Consult date: 06/27/21 Assessment/Plan:: HISTORY OF PRESENT ILLNESS: 76 yr old male inpatient as a referral from Dr Packer for pain control. Pt states he fell down off of a ladder approximately 2 days ago from a height of 8-10 feet on dirt & grass sustaining left sided chest, hip and tailbone pain. CT imaging 1 day ago has shown pt has developed a small L hemopneumothorax, L sacral fracture, L ischium fracture and possible non displaced L acetabular fracture. Pt can not bear weight on the LLE and up with assistance currently for ADLs while hospitalized. Pt states his pain level is 10/10, constant, dull, achy in the hip and tailbone area with sharp shooting pain radiating towards the buttocks. Pain is provoked with bearing weight. Past Medical History: Skin Cancer Past Surgical History: Hernia Repair, LUE Fx with hardware placement/ removal Social History: Former tobacco user (Quit in 1970s), occasional ETOH use, no illicit drug use. Resided in senior housing. Family History: Father- [place]. Sister- [place]. All: NKDA Meds: See list REVIEW OF ORGAN SYSTEMS: CONSTITUTIONAL: No fevers or chills. No recent weight loss. HEENT: No visual acuity loss, eye pain, difficulties with hearing. No nosebleeds. No difficulty swallowing. RESPIRATORY: Denies any troubles with breathing or dyspnea on exertion. CARDIOVASCULAR: Denies any chest pain, palpitations, or recent heart attacks. GASTROINTESTINAL: Denies fatty food intolerance. Has change in bowel habits and gas bloat. GENITOURINARY: Denies any blood in urine. Has increased urinary frequency. NEUROLOGICAL: + numbness and tingling along the distal extremities. No seizure disorders or headaches. MUSCULOSKELETAL: + back pain SKIN: No skin cancer. No rash. PSYCHIATRIC: Denies current depression or suicidal thoughts. ENDOCRINE: Denies current thyroid disorders. Denies any blood sugar glucose intolerance. HEME/LYMPHATIC: Denies any lumps and bumps around the neck. History of deep venous thrombosis. ALLERGY/IMMUNOLOGY: No immunoglobulin therapy. No immune deficiencies. BREAST: Denies current breast lumps, pain or nipple discharge. Physical Examinations : Constitutional : Cooperative , not in acute distress . HEENT: Neck supple. No Lymphadenopathy. Normal thyroid size . Eyes no ptosis , no icterus, no photophobia . Hearing intact. Normal oropharynx. No Thrush. Respiratory : Chest clear to auscultations bilaterally. No wheezing. No rhonchi. Cardiovascular : Regular rate and rhythm , S1 / S2. No S3 . No S4. Gastrointestinal : Abdomen soft. No tenderness. Bowel sounds x 4. No organomegaly . Genitourinary : Deferred. Neurologic : Cranial nerve II to XII intact. No focal neurological deficits. Psychiatric : alert & oriented x 3. Matching mood & appropriate affect. Judgment & insight intact. Lymphatic No Lymphadenopathy. Musculoskeletal : Cervical Spine Motor strength in the deltoid and biceps: Normal right side. Normal Left side Motor strength biceps and the wrist extensors: Normal right side . Normal left side Motor strength in the triceps muscle: Normal right side. Normal left side Deep tendon reflexes: Normal at the biceps. Normal at Brachioradialis. Normal at triceps Cervical facet loading test: positive bilaterally Spurling test: positive bilaterally Neck distraction test: positive bilaterally Dharmesh sign: positive bilaterally Lumbar spine Motor strength lower extremities ,thigh and legs 5/5 Right side , 5/5 Left side Deep tendon reflexes : Normal Knee Jerk. Normal Ankle Jerk Vertebral body tenderness over Lumbar facet Loading Test: positive Right / positive Left Range of motion of the lumbar spine Flexion 30 degrees, extension 10 degrees Straight Leg Raise test: Left/ Right positive at degree Florin test: positive right / positive left. Severe tenderness over the Sacroiliac joint on the Right / Left side Gaenslen test: positive left Seated flexion test: positive bilaterally. Imaging: CT Scan without contrast of Abd/Pelvis from 06/26/21 reviewed. Assessment/ Plan : Small L hemopneumothorax L Sacral Fx L Ischium Fx Possible L nondisplaced hairline Acetabular Fx Medication management including Dilaudid 1mg IVP Q3h prn pain, [place] 5/325mg 1-2 tabs PO Q4hr prn pain. All questions answered. I have spent greater than 50 minutes on patient care today. Dr Davila was available by phone for the evaluation of this patient. The time was used to review the medical records including relevant urine studies and Prescription history (MAPs), review of the available imaging, evaluation and examination of the patient, coordination of care with the medical staff and if applicable referring physicians, as well as creation of the medical record PQRS Measure Charge Sheet - Pain Location Generalized Non-Pharmacological Interventions: Darkened Room, Distraction Pharmacological Interventions: PRN Medication PQRS Narrative: Smoking Status Former smoker Do You Want the Pneumonia No Vaccine AT THIS TIME? Blood Pressure [Left Arm] 123/69 Blood Pressure 112/80 Pain Intensity [Generalized] 3 Pain Intensity 5 Pain Scale Used Numeric (1 - 10) Scale Used Numeric (1 - 10) Home Medications: Ambulatory Orders Garlic 100 mg PO DAILY 06/26/21 Turmeric Root Extract [Turmeric] 500 mg PO DAILY 06/26/21 Ubidecarenone [Co Q-10] 100 mg PO DAILY 06/26/21 Vitamin B Complex 1 cap PO DAILY 06/26/21 Zinc Gluconate [Zinc] 50 mg PO DAILY 06/26/21
--- NOTE | 2021-06-27 17:49 | XR ---
EXAMINATION TYPE: XR chest 2V DATE OF EXAM: 06/27/2021 COMPARISON: X-ray dated 06/26/2021 HISTORY: Chest trauma TECHNIQUE: Frontal and lateral views of the chest are obtained. FINDINGS: Left lung base atelectasis/focal pulmonary contusion. Displaced fractures of the left third and possi sheri fourth ribs with suspected fractures of the axillary portions of the left midribs, please correla te clinically. Dedicated x-ray of the left ribs can be considered. Slightly congested pulmonary vasculature. Small left sided pneumothorax with left pleural effusion/he mothorax. No right-sided pneumothorax. No gross cardiomegaly. Degenerative changes of lower cervical spine. IMPRESSION: Left rib fractures with a small left-sided pneumothorax and left pleural effusion/hemothorax. Suspect ed left basal pulmonary contusion as described above. Further CT assessment can be considered. A Red level critical message alert has been initiated for Renato Reagan via the [employer] Results System on 06/27/2021 5:47 PM. This message alert has been sent to Renato Reagan via the [employer] rences provided by the clinician for the receipt of Radiology Critical Findings. Message ID [id number].
--- NOTE | 2021-06-27 19:09 | CONS ---
CONSULTATION DATE OF SERVICE: 06/27/2021 REASON FOR CONSULTATION: Advice regarding abnormal labs and other medical issues, requested by Dr. Payton. HISTORY OF PRESENT ILLNESS: This 76-year-old gentleman with a past medical history of hernia repair, history of DJD, being followed by Dr. Judge in the outpatient setting, previously had a fall from a ladder. The patient sustained multiple injuries. Patient was complaining of left-sided chest pain and left leg pain. Evaluation showed eleventh rib fracture, some very small pneumothorax of 3%, possible sacral fracture, and non-displaced hairline left acetabular fracture. No chest pain. No palpitations. PAST MEDICAL HISTORY: History of cancer polyps; reviewed. MEDICATIONS: They include zinc. Other medications reviewed. ALLERGIES: NONE. FAMILY HISTORY: Cancer. SOCIAL HISTORY: Previous history of smoking. REVIEW OF SYSTEMS: Fourteen-point review of systems negative except as mentioned earlier. PHYSICAL EXAMINATION: Pulse is 78, blood pressure 110/65, respiration 12. HEENT: Conjunctivae normal. NECK: No jugular venous distention. CARDIOVASCULAR: S1, S2 muffled. RESPIRATION: Breath sounds diminished at the bases. A few scattered rhonchi. Breath sounds are diminished on the left side. ABDOMEN: Soft, non-tender. LEGS: Movements painful. NERVOUS SYSTEM: No focal deficit. SKIN: No ulcer, rash, bleeding. JOINTS: As mentioned earlier. LABS: WBC 9.8, hemoglobin 10.2. Other labs are noted. ASSESSMENT: 1. Fall and left eleventh rib fracture and severe rib pain. 2. Small left pneumothorax. 3. Left sacral and acetabular fracture. 4. Gait dysfunction. RECOMMENDATIONS AND DISCUSSION: In this 76-year-old gentleman who presented with multiple medical issues, at this time I recommend to continue the pain management. X-rays reviewed. PT/OT evaluation. Incentive spirometry. Discussed with the family. Also recommend close followup with Dr. Judge after discharge. Thank you, Dr. Payton, for letting us participate in the care of this patient. MMODL / IJN: [id number] /
[2021-06-28] MEDS: HYDROcodone/APAP 5-325MG 1 EACH TAB PO PRN ×3 (03:07→20:39)
[2021-06-28] MEDS: HYDROmorphone 1 MG/ML 1 ML SYRINGE IVP PRN (07:21)
[2021-06-28] MEDS: PANTOPRAZOLE 40 MG TABLET PO SCH (08:53)
[2021-06-28] MEDS: HEPARIN SODIUM,PORCINE/PF 5,000 UNIT/0.5 ML SYRINGE SQ SCH ×2 (08:53→20:38)
[2021-06-28] MEDS: ZINC SULFATE 220 MG CAP PO SCH (08:53)
[2021-06-28] MEDS ORDERED: NON FORMULARY DRUG (Ubidecarenone [Co Q-10] 100 MG Capsule) PO SCH (09:00)
[2021-06-28] MEDS ORDERED: NON FORMULARY DRUG (Vitamin B Complex [Vitamin B Complex] 1 EACH Capsule) PO SCH (09:00)
[2021-06-28 09:20] LABS: Basophils # (A) 0.04 X 10*3/uL (0.00-0.10); Basophils % (A) 0.3 %; Eosinophils # (A) 0.12 X 10*3/uL (0.04-0.35); HCT 31.3 % (39.6-50.0); HGB 9.9 g/dL (13.0-17.0); Immature Grans, Automated 0.3 %; Lymphocytes # (A) 1.93 X 10*3/uL (0.90-5.00); Lymphocytes % (A) 16.8 %; MCH 30.6 pg (27.0-32.0); MCHC 31.6 g/dL (32.0-37.0); MCV 96.6 fL (80.0-97.0); Monocytes # (A) 1.05 X 10*3/uL (0.20-1.00); Monocytes % (A) 9.1 %; NRBC Per 100 WBC 0 /100 WBCS (0.0-0.0); Neutrophils % (A) 72.5 %; Platelet Count 160 X 10*3/uL (140-440); RBC 3.24 X 10*6/uL (4.40-5.60); RDW 13.5 % (11.5-14.5); WBC 11.48 X 10*3/uL (4.50-10.00)
[2021-06-28 09:39] LABS: African American GFR (CKD) 75.7 (60.0-200.0); Albumin 3.6 g/dL (3.8-4.9); Albumin/Globulin Ratio 1.71 (1.60-3.17); Anion Gap 8.8 mmol/L (10.00-18.00); BUN/Creat Ratio 16.27 Ratio (12.00-20.00); Blood Urea Nitrogen 17.9 mg/dL (9.0-27.0); Calcium 8.6 mg/dL (8.7-10.3); Carbon Dioxide 24.2 mmol/L (20.0-27.5); Globulin 2.1 g/dL (1.6-3.3); Non-African American GFR(CKD) 65.3 (60.0-200.0); Potassium 4.2 mmol/L (3.5-5.5); Total Bilirubin 0.5 mg/dL (0.30-1.20); Total Protein 5.7 g/dL (6.2-8.2)
--- NOTE | 2021-06-28 11:20 | P.PN ---
Progress Note - Text Progress Note Date: 06/28/21 The patient is seen and examined at bedside I reviewed the imaging with a computed tomography scan and x-rays as well as the note from an apartment yesterday. I am in agreement with his note. The patient continues has some pain at his left side lungs left ribs and left pelvis. He is sitting up in a chair today and he says it is sore all over. He denies any numbness tingling lower extremities. Denies any changes in bowel bladder function. He is having some pain with deep breathing and coughing due to his ribs. He's afebrile stable vital signs At his lower extremities he does not have significant pain with internal/external rotation of his hips particularly at the left. He is able to dorsi flex plan flexor 5 out of 5 strength. He is able to extend his knees with 5 out of 5 strength. He has significant pain with flexing his left hip but he is able to do so. He is not having pain in his right leg with elevating his right leg in the air by itself. His thighs and calves soft nontender. His computed tomography scan shows fractured left sacral ala and his left issue him courses inferior Rami and small fracture at the lip of his anterior acetabulum Assessment and plan Status post fall from a height approximately 8-10 feet from a ladder Acute pelvic fracture closed book type fracture with left sacral ilium and left inferior issue him/pubic rami fracture Small nondisplaced anterior lip of acetabulum fracture on the left Left 11th rib fracture with small hemothorax without significant breathing dysfunction or requirements for oxygen In terms of the patient's pelvis he has a closed book type fracture due to his fall with a fractured sacrum and inferior issue him. The fracture pattern overall appears stable and he is not having any hemodynamic issues. I think that he he can do well with conservative treatment as his can heal without any surgical intervention. The fracture at his acetabulum is not significantly displaced and not interfering with his hip function and can heal well without any surgical intervention as well. I think that he needs to be nonweightbearing on the left lower extremity to protect his sacrum and his acetabulum fractures as he continues to heal. He will likely need to be nonweightbearing for 4-6 weeks. We can have therapy work with him to mobilize and transfer weightbearing as tolerated on the right lower extremity with nonweightbearing on left lower extremity. He continues management in terms of his rib fractures and is hemothorax per medicine and trauma service. From an orthopedic standpoint is okay for the patient to be discharged to nursing facility or to home if he is comfortable with mobilization ambulation n onweightbearing when he is stable from trauma service and medicine. We can see him back in the office in approximately 2 weeks' time for recheck evaluation and repeat x-rays
--- NOTE | 2021-06-28 12:32 | P.PN ---
Subjective Progress Note Date: 06/28/21 This is a very pleasant 76-year-old male patient with known history of skin cancer, occasional alcohol use, previous hernia repair. Yesterday he was out in chart up on a step ladder approximately 10 feet high and was cutting a branch down from the tree. When the parents follow his letter knocked him off the ladder he landed on his left side into the grass. He presented here with left- sided chest discomfort worsening with deep breathing. He also had left hip pain. Unclear if he hit his head. Denied any loss of consciousness. Left hip x-rays revealed no evidence of fracture. Chest x-ray revealed no active cardiopulmonary process. Normal heart. Computed tomography scan of the head and C-spine revealed mild left sided scalp soft tissue swelling. No acute intracranial abnormalities. Minor degenerative changes in the cervical spine. No fracture. Computed tomography scan of the chest abdomen and pelvis revealed acute fracture of the left posterior 11th rib. Infiltrate and atelectasis at the lung bases. Small left-sided pneumothorax. Small left pleural effusion consistent with hemothorax. There is a nondisplaced fracture of the lateral mass of the sacrum on the left side as well as a very likely a nondisplaced hairline left acetabular fracture. There is fracture of the left ischium. EKG reveals sinus rhythm without acute ST or T wave abnormalities. White count 9.8. Hemoglobin 10.8. Platelet count 193. Urine drug screen positive for opiates. The patient did receive morphine sulfate via EMS. Serum alcohol level less than 10. The patient is seen today in consultation on the regular medical floor. He is currently sitting up at the bedside. Awake and alert in no acute distress. He is still having quite a bit of left-sided chest discomfort. Left hip pain. He is being treated with [place] 5325 one to 2 tablets as needed. Alternating with Dilaudid. The patient is seen today June 28 2021 in follow-up on the regular medical floor. He is currently sitting up in bed. Awake and alert in no acute distress. Maintaining O2 saturation in the low 90s on room air. chest x-ray continues to revealed some left-sided pleural effusion, hemothorax. Afebrile. Hemodynamically stable. He is working well with the incentive spirometer. White count 11.4. Hemoglobin 9.9. Platelets 160. Sodium 134. Potassium 4.2. BUN 17.9. Creatinine 1.1. appendectomy is on heparin for DVT prophylaxis. Pain managed with [place] alternating with Dilaudid. Objective - Vital Signs Vital signs: Vital Signs Temp 98.5 F 06/28/21 07:57 Pulse 86 06/28/21 07:57 Resp 19 06/28/21 07:57 BP 115/68 06/28/21 07:57 Pulse Ox 94 L 06/28/21 07:57 Intake & Output 06/27/21 06/28/21 06/28/21 18:59 06:59 18:59 Intake Total 120 590 Output Total 400 100 Balance 120 190 -100 Intake: Oral 120 590 Output: Urine 400 100 Other: Voiding Method Urinal Urinal # Voids 3 2 - Exam GENERAL EXAM: Alert, very pleasant 76-year-old gentleman, on room air, fairly comfortable in no apparent distress. HEAD: Abrasion over the right eye. Normocephalic. EYES: Normal reaction of pupils, equal size. NOSE: Clear with pink turbinates. THROAT: No erythema or exudates. NECK: No masses, no JVD. CHEST: No chest wall deformity. LUNGS: Equal air entry with crackles in the left lung base, diminished. CVS: S1 and S2 normal with no audible murmur, regular rhythm. ABDOMEN: No hepatosplenomegaly, normal bowel sounds, no guarding or rigidity. SPINE: No scoliosis or deformity SKIN: No rashes CENTRAL NERVOUS SYSTEM: No focal deficits, tone is normal in all 4 extremities. EXTREMITIES: There is no peripheral edema. No clubbing, no cyanosis. P eripheral pulses are intact. - Labs CBC & Chem 7: 06/28/21 06:13 06/28/21 06:13 Labs: Abnormal Lab Results - Last 24 Hours (Table) 06/28/21 06/28/21 Range/Units 06:13 06:13 WBC 11.48 H (4.50-10.00) X 10*3/uL RBC 3.24 L (4.40-5.60) X 10*6/uL Hgb 9.9 L (13.0-17.0) g/dL Hct 31.3 L (39.6-50.0) % MCHC 31.6 L (32.0-37.0) g/dL Neutrophils # 8.30 H (1.80-7.70) X 10*3/uL Monocytes # 1.05 H (0.20-1.00) X 10*3/uL Sodium 134 L (135-145) mmol/L Anion Gap 8.80 L (10.00-18.00) mmol/L Calcium 8.6 L (8.7-10.3) mg/dL AST 41 H (14-35) U/L Total Protein 5.7 L (6.2-8.2) g/dL Albumin 3.6 L (3.8-4.9) g/dL Assessment and Plan Assessment: 1 Trauma, status post fall from stepladder approximately 10 feet. Fracture to the posterior 11th rib. Nondisplaced fracture of the lateral mass of the sacrum on the left side this was very likely a nondisplaced hairline left acetabular fracture. There is fracture of the left ischium. 2 Left-sided chest pain on inhalation secondary to trauma and 11th rib fracture along with infiltrate and atelectasis of the posterior left lower lobe. Very small left pneumothorax less than 3%. 3 Left hip pain secondary to above 4 Anemia with a presenting hemoglobin 12.1, currently 9.9 5 History of skin cancer Plan: The patient was seen and evaluated Chest x-ray and labs reviewed We'll obtain ultrasound of the left chest Rule out any worsening hemothorax with the drop in hemoglobin Follow-up chest x-ray in the a.m. We will continue to follow I have personally seen and examined the patient, performed the documentation and the assessment and plan as written. Number of minutes spent on the visit: 10.
--- NOTE | 2021-06-28 12:57 | XR ---
EXAMINATION TYPE: XR chest 2V DATE OF EXAM: 06/28/2021 COMPARISON: X-ray dated 06/27/2021 HISTORY: Follow-up TECHNIQUE: Frontal and lateral views of the chest are obtained. FINDINGS: Persistent left third rib fracture with persistent atelectasis/consolidation of the left lung base. S ubtle infiltration of the right lung base, slightly more prominent compared to the previous. Persiste nt pneumothorax best appreciated in the lateral view measuring 12 mm superiorly compared to 10 mm pre viously. Persistent left-sided pleural effusion/hemothorax, slightly more prominent compared to the p revious. Unchanged cardiomediastinal silhouette. IMPRESSION: Slightly larger left-sided pneumothorax and left pleural fluid/hemothorax. Further CT assessment can be considered. A Red level critical message alert has been initiated for Brenden Payton MD via the [employer] Critical Results System on 06/28/2021 12:55 PM. This message alert has been sent to Brenden Payton MD via the preferences provided by the clinician for the receipt of Radiology Critical Findings. [facility] ID [id number].
[2021-06-28] MEDS ORDERED: IPRATROPIUM-ALBUTEROL 3 ML NEB INHALATION PRN (12:59)
[2021-06-28] MEDS: IPRATROPIUM-ALBUTEROL 3 ML NEB INHALATION SCH ×2 (13:21→19:59)
--- NOTE | 2021-06-28 13:30 | PN ---
PROGRESS NOTE DATE OF SERVICE: 06/28/2021 This 76-year-old gentleman who was admitted with fall and multiple fractures had significant pain at this time. No chest pain. No palpitations. No fever. PHYSICAL EXAMINATION: Pulse is 83. Blood pressure 127/52, respirations 14, pulse ox 98% on room air. HEENT: Conjunctivae normal. Neck: No JVD. Cardiovascular: S1, S2 muffled. Respiratory: A few scattered rhonchi. Abdomen soft. Nervous system: No focal deficits. LABS: Reviewed. ASSESSMENT: 1. Fall and left eleventh rib fracture and severe rib pain and chest pain. 2. Small left pneumothorax. 3. History of sacral fracture. 4. Gait dysfunction. 5. Atelectasis. RECOMMENDATIONS: Recommend to continue current medications, management and DVT prophylaxis. Follow closely with surgery and I would also recommend to add bronchodilators as well. See orders for further details. MMODL / IJN: [id number] / GERARDO
[2021-06-28] MEDS ORDERED: RX INFO: IV CONTRAST WAS GIVEN 1 EACH MISC MISCELLANE PRN (14:07)
--- NOTE | 2021-06-28 14:34 | US ---
EXAMINATION TYPE: US chest DATE OF EXAM: 06/28/2021 COMPARISON: X-ray performed earlier same day CLINICAL HISTORY: Left hemothorax, post trauma. TECHNIQUE: Targeted ultrasound of the posterior lower left hemithorax EXAM MEASUREMENTS: Left Pleural Effusion pocket size: 6.0 cm Left skin surface to fluid distance: 3.8 cm Lung seen within anterior portion of fluid pocket Left side marked for possible thoracentesis outside the dept. Pulmonologists are able to review the images in the patient?s EMR. IMPRESSIONS: As above.
--- NOTE | 2021-06-28 15:12 | P.PN ---
Subjective Progress Note Date: 06/28/21 CHIEF COMPLAINT: Fall from ladder HISTORY OF PRESENT ILLNESS: Patient admitted to trauma service due to a 10 foot fall from ladder with multiple injuries. Patient still complaining of pain along the left chest wall and left hip area and sacrum area. Patient denies any new pain. Patient is not ambulating very well. He is working with physical therapy. Patient did have a low-grade temp of 100.4 last night heart rate of 102 he is on room air satting at 94%. Chest x-ray shows a slightly larger left- sided pneumothorax and left pleural fluid/hemothorax. Further CT assessment can be considered. WBC is up at 11.48 hemoglobin 9.9 platelets 160 sodium 134 potassium 4.2 creatinine 1.1 Patient seen and examined with Dr. olvera PHYSICAL EXAM: VITAL SIGNS: Reviewed. GENERAL: Well-developed in no acute distress. HEENT: No sclera icterus. Extraocular movements grossly intact. Moist buccal mucosa. Head is atraumatic, normocephalic. ABDOMEN: Soft. Nondistended. Nontender. NEUROLOGIC: Alert and oriented. Cranial nerves II through XII grossly intact. ASSESSMENT: 1. Trauma with fall from 10 foot ladder 2. Left 11th rib fracture 3. Very small left pneumothorax 4. Small left pleural effusion consistent with hemothorax 5. Nondisplaced fracture of the lateral mass of the sacrum and left side and a nondisplaced hairline left acetabular fracture and fracture of the left ischium 6. Left pulmonary contusion PLAN: -Computed tomography scan of the chest ordered for further evaluation of the increasing size of hemopneumothorax noted on chest x-ray -Consult placed for cardiothoracic team regarding further evaluation of hemopneumothorax -Continue supportive care -Continue using incentive spirometer -Continue pain control -Consult Dr. Guzmán for possible inpatient rehab -GI prophylaxis Protonix and DVT prophylaxis subcu heparin Physician [employer] note has been reviewed by physician. Signing provider agrees with the documented findings, assessment, and plan of care. Objective - Vital Signs Vital signs: Vital Signs Temp 97.8 F 06/28/21 12:13 Pulse 83 06/28/21 12:13 Resp 14 06/28/21 12:13 BP 127/55 06/28/21 12:13 Pulse Ox 90 L 06/28/21 12:13 Intake & Output 06/27/21 06/28/2122 18:59 06:59 18:59 Intake Total 120 590 180 Output Total 400 100 Balance 120 190 80 Intake: Oral 120 590 180 Output: Urine 400 100 Other: Voiding Method Urinal Urinal # Voids 3 2 - Labs CBC & Chem 7: 06/28/21 06:13 06/28/21 06:13 Labs: Abnormal Lab Results - Last 24 Hours (Table) 06/28/21 06/28/21 Range/Units 06:13 06:13 WBC 11.48 H (4.50-10.00) X 10*3/uL RBC 3.24 L (4.40-5.60) X 10*6/uL Hgb 9.9 L (13.0-17.0) g/dL Hct 31.3 L (39.6-50.0) % MCHC 31.6 L (32.0-37.0) g/dL Neutrophils # 8.30 H (1.80-7.70) X 10*3/uL Monocytes # 1.05 H (0.20-1.00) X 10*3/uL Sodium 134 L (135-145) mmol/L Anion Gap 8.80 L (10.00-18.00) mmol/L Calcium 8.6 L (8.7-10.3) mg/dL AST 41 H (14-35) U/L Total Protein 5.7 L (6.2-8.2) g/dL Albumin 3.6 L (3.8-4.9) g/dL
[2021-06-28] MEDS: KETOROLAC 15 MG/ML 1 ML VIAL IVP SCH ×2 (15:19→18:05)
--- NOTE | 2021-06-28 15:25 | P.GSCN ---
History of Present Illness Consult date: 06/28/21 Reason for Consult: Left-sided hemopneumothorax Requesting physician: Gemma Elise History of present illness: This is a 76-year-old active gentleman who does not follow with a primary care physician on an outpatient basis. He has a previous medical history of hypertension, skin cancer, previous tobacco dependence, occasional EtOH use, and family history of lung cancer. A couple of days ago he was up on a ladder and fell onto his left side, he did hit his head but did not lose consciousness, he was unable to get up without assistance and a neighbor called 911. The patient was brought to [facility] emergency room for evaluation and treatment. He complained of shortness of breath, difficulty taking a deep breath due to pain, and left-sided chest pain. The patient underwent multiple x-rays and CT scans in the emergency room and was found to have fracture of the left posterior 11th rib with infiltrate and atelectasis at both lung bases, small left-sided pneumothorax, small left pleural effusion consistent with hemothorax as well as hairline acetabular fracture and fracture of the left ischium. Labwork on admission revealed WBC 15.4, hemoglobin 12.1, platelet count 117, BUN 23, creatinine 1.23, AST 62, lactic acid 0.8. He was admitted to medical surgical unit with consultation placed to pulmonology and orthopedics. This morning's chest x-ray revealed slightly larger left-sided pneumothorax and left pleural effusion/hemothorax. Hemoglobin dropped to 9.9 this morning. Chest ultrasound was ordered by pulmonology with the left side marked for thoracentesis. Repeat CTA of the chest was ordered by trauma services and consultation was placed to cardiothoracic surgery for treatment recommendations. Review of Systems Review of systems was completed and was negative except as noted - Cardiovascular Cardiovascular Comment(s): Difficulty taking a deep breath due to pain Reports as per HPI, Reports chest pain, Reports shortness of breath - Gastrointestinal Gastrointestinal Comment(s): Diarrhea prior to admission, currently feels constipated Past Medical History Past Medical History: Cancer, Hypertension Additional Past Medical History / Comment(s): hx polyps, hx skin cancer, covid History of Any Multi-Drug Resistant Organisms: None Reported Past Surgical History: Hernia Repair, Orthopedic Surgery Additional Past Surgical History / Comment(s): fx left arm-plate later removed Past Anesthesia/Blood Transfusion Reactions: No Reported Reaction Past Psychological History: No Psychological Hx Reported Smoking Status: Former smoker Past Alcohol Use History: Occasional Additional Past Alcohol Use History / Comment(s): Quit smoking in 1970s Past Drug Use History: None Reported - Past Family History Father Family Medical History: Cancer Sister(s) Family Medical History: Cancer Medications and Allergies Home Medications Medication Instructions Recorded Confirmed Type Garlic 100 mg PO DAILY 06/26/21 06/26/21 History Turmeric Root Extract [Turmeric] 500 mg PO DAILY 06/26/21 06/26/21 History Ubidecarenone [Co Q-10] 100 mg PO DAILY 06/26/21 06/26/21 History Vitamin B Complex 1 cap PO DAILY 06/26/21 06/26/21 History Zinc Gluconate [Zinc] 50 mg PO DAILY 06/26/21 06/26/21 History Allergies Allergy/AdvReac Type Severity Reaction Status Date / Time No Known Allergies Allergy Verified 06/26/21 17:33 Surgical - Exam Vital Signs Temp Pulse Resp BP Pulse Ox 98.9 F 99 18 164/83 97 06/26/21 16:19 06/26/21 16:19 06/26/21 16:19 06/26/21 16:19 06/26/21 16:19 CONSTITUTIONAL: Awake and alert, appears comfortable, cooperative, well- developed, well-nourished, no acute distress EYES: Pupils equal, round, reactive to light, normal ocular movement ENT: Moist mucous membranes without oral lesions present NECK: No masses, no bruits, trachea midline RESPIRATORY: Lungs sounds diminished in the left lung base. Respirations even, nonlabored. Currently on room air with oxygen saturation 90-94%. Strong cough. CARDIOVASCULAR: S1, S2 present. Regular rate and rhythm. Palpable peripheral pulses bilaterally. No edema present. No calf pain or tenderness noted. GASTROINTESTINAL: Abdomen soft, nontender, nondistended without masses or organomegaly noted. There is no rebound or guarding present. Active bowel sounds present 4 quadrants. GENITOURINARY: Deferred INTEGUMENTARY: Skin is warm and dry with evidence of good perfusion. NEUROLOGIC: Cranial nerves II through XII intact, normal coordination, no obvious motor or sensory deficits, speech is normal MUSKULOSKELETAL: Able to move all extremities, strength equal bilaterally, normal posture PSYCHIATRIC: Alert and oriented to person place and time, appropriate affect, intact judgment and insight Results - Labs 06/28/21 06:13 06/28/21 06:13 Abnormal Lab Results - Last 24 Hours (Table) 06/28/21 06/28/21 Range/Units 06:13 06:13 WBC 11.48 H (4.50-10.00) X 10*3/uL RBC 3.24 L (4.40-5.60) X 10*6/uL Hgb 9.9 L (13.0-17.0) g/dL Hct 31.3 L (39.6-50.0) % MCHC 31.6 L (32.0-37.0) g/dL Neutrophils # 8.30 H (1.80-7.70) X 10*3/uL Monocytes # 1.05 H (0.20-1.00) X 10*3/uL Sodium 134 L (135-145) mmol/L Anion Gap 8.80 L (10.00-18.00) mmol/L Calcium 8.6 L (8.7-10.3) mg/dL AST 41 H (14-35) U/L Total Protein 5.7 L (6.2-8.2) g/dL Albumin 3.6 L (3.8-4.9) g/dL Diabetes panel 06/28/21 Range/Units 06:13 Sodium 134 L (135-145) mmol/L Potassium 4.2 (3.5-5.5) mmol/L Chloride 101 (96-109) mmol/L Carbon Dioxide 24.2 (20.0-27.5) mmol/L BUN 17.9 (9.0-27.0) mg/dL Creatinine 1.1 (0.6-1.5) mg/dL Glucose 102 (70-110) mg/dL Calcium 8.6 L (8.7-10.3) mg/dL AST 41 H (14-35) U/L ALT 31 (10-49) U/L Alkaline Phosphatase 54 (41-126) U/L Total Protein 5.7 L (6.2-8.2) g/dL Albumin 3.6 L (3.8-4.9) g/dL Calcium panel 06/28/21 Range/Units 06:13 Calcium 8.6 L (8.7-10.3) mg/dL Albumin 3.6 L (3.8-4.9) g/dL Pituitary panel 06/28/21 Range/Units 06:13 Sodium 134 L (135-145) mmol/L Potassium 4.2 (3.5-5.5) mmol/L Chloride 101 (96-109) mmol/L Carbon Dioxide 24.2 (20.0-27.5) mmol/L BUN 17.9 (9.0-27.0) mg/dL Creatinine 1.1 (0.6-1.5) mg/dL Glucose 102 (70-110) mg/dL Calcium 8.6 L (8.7-10.3) mg/dL Adrenal panel 06/28/21 Range/Units 06:13 Sodium 134 L (135-145) mmol/L Potassium 4.2 (3.5-5.5) mmol/L Chloride 101 (96-109) mmol/L Carbon Dioxide 24.2 (20.0-27.5) mmol/L BUN 17.9 (9.0-27.0) mg/dL Creatinine 1.1 (0.6-1.5) mg/dL Glucose 102 (70-110) mg/dL Calcium 8.6 L (8.7-10.3) mg/dL Total Bilirubin 0.50 (0.30-1.20) mg/dL AST 41 H (14-35) U/L ALT 31 (10-49) U/L Alkaline Phosphatase 54 (41-126) U/L Total Protein 5.7 L (6.2-8.2) g/dL Albumin 3.6 L (3.8-4.9) g/dL - Imaging Chest x-ray: report reviewed, image reviewed CT scan - chest: report reviewed, image reviewed Assessment and Plan Assessment: 1. Fall from standing, fractured left rib, small hemopneumothorax 2. Pain secondary to above 3. Acute anemia 4. History of hypertension 5. History of skin cancer 6. Previous tobacco dependence 7. Occasional EtOH use 8. Family history of lung cancer ADDENDUM: 76-year-old male admitted with blunt trauma. Initial computed tomography scan of chest demonstrated small left hemothorax. Serial x-rays have been relatively stable. There is still evidence of small amount of hemothorax along with a small pneumothorax. None of these appear to be clinically significant. Patient is comfortable. Lung stephens are clear. Heart rate and rhythm are regular. Small posttraumatic pneumothorax and hemothorax. Neither of these require intervention at this time. Patient could be discharged from cardiothoracic surgical standpoint. Follow-up chest x-ray in 1 week should be sufficient. Plan: The patient was seen and examined on the medical surgical unit sitting up in a recliner in no acute distress. He states his pain is pretty well-controlled piece to sit still and doesn't move, however with a lot of movement or with deep inspiration he does have left-sided chest pain. Oxygenating well and room air. Will review repeat CAT scan once completed. Encourage incentive spirometry use. Pain control per current medication regimen. Will review the case with Dr. Beltran. Medical management of other comorbidities per primary service. More recommendations to follow. Thank you for this consult, we will follow along with you. I have personally seen and examined the patient, performed the documentation and the assessment and plan as written. Number of minutes spent on the visit: 30.
--- NOTE | 2021-06-28 16:48 | CT ---
EXAMINATION TYPE: CT chest w con DATE OF EXAM: 06/28/2021 COMPARISON: X-ray done earlier today and CT dated 06/26/2021 HISTORY: increasing left sided pneumothorax and hemothorax CT DLP: 358.40 mGycm Automated exposure control for dose reduction was used. TECHNIQUE: CT scan of the chest is performed with IV Contrast, patient injected with 100 mL of Isovue 300. FINDINGS: LUNGS: Small left apical pneumothorax measuring 19 mm compared to 10 mm previously. Left pleural effu mckenna with a complete collapse of the left lower lobe, progressed compared to the previous CT scan. Velásquez spected minimal dependent density in the left pleural effusion which could represent minimal blood. S mall right-sided pleural fluid with subsegmental pulmonary atelectasis. Patent trachea and main bronc hi. MEDIASTINUM: Cardiomegaly. Arterial and coronary atherosclerotic calcifications. No pathologically en larged lymph nodes in the chest. No pneumomediastinum. No sizable pericardial effusion. OTHER: Stable thickened left adrenal. Slightly displaced fracture of the axillary portion of the rig ht sixth rib, more apparent compared to the previous CT scan. Slightly displaced fracture of the axil marleen portion of the left third rib with nondisplaced fracture posteriorly. Fractured most medial aspe cts of the left fifth, sixth, seventh and eighth ribs as well as the posterior aspect of the left 11t h rib with nondisplaced fractures of the axillary portions of the left sixth, seventh, eighth and pos sibly ninth ribs. Exaggerated dorsal kyphosis. Degenerative changes of the thoracic spine. IMPRESSION: Small left-sided pneumothorax, slightly larger compared to the previous CT scan. Multiple left rib fr actures with right sixth rib fracture as detailed above. Small left-sided pleural effusion with incom plete collapse of the left lower lobe, progressed compared to the previous. Other interval changes as described above.
[2021-06-29] MEDS: KETOROLAC 15 MG/ML 1 ML VIAL IVP SCH ×4 (00:39→18:09)
[2021-06-29] MEDS: ZINC SULFATE 220 MG CAP PO SCH (08:01)
[2021-06-29] MEDS: HEPARIN SODIUM,PORCINE/PF 5,000 UNIT/0.5 ML SYRINGE SQ SCH ×2 (08:01→20:35)
[2021-06-29] MEDS: PANTOPRAZOLE 40 MG TABLET PO SCH (08:01)
[2021-06-29] MEDS: IPRATROPIUM-ALBUTEROL 3 ML NEB INHALATION SCH ×3 (08:07→19:55)
[2021-06-29 09:14] LABS: Basophils # (A) 0.04 X 10*3/uL (0.00-0.10); Basophils % (A) 0.3 %; Eosinophils # (A) 0.32 X 10*3/uL (0.04-0.35); Eosinophils % (A) 2.7 %; HCT 33.2 % (39.6-50.0); HGB 10.6 g/dL (13.0-17.0); Immature Grans, Automated 0.3 %; Lymphocytes # (A) 2.15 X 10*3/uL (0.90-5.00); Lymphocytes % (A) 18.3 %; MCH 30.3 pg (27.0-32.0); MCHC 31.9 g/dL (32.0-37.0); MCV 94.9 fL (80.0-97.0); Mean Platelet Volume 11.2 fL (9.5-12.2); Monocytes # (A) 0.99 X 10*3/uL (0.20-1.00); Monocytes % (A) 8.4 %; NRBC Per 100 WBC 0 /100 WBCS (0.0-0.0); Neutrophils # (A) 8.23 X 10*3/uL (1.80-7.70); Platelet Count 174 X 10*3/uL (140-440); RDW 13.6 % (11.5-14.5); WBC 11.77 X 10*3/uL (4.50-10.00)
[2021-06-29 09:26] LABS: African American GFR (CKD) 67.5 (60.0-200.0); Anion Gap 12.5 mmol/L (10.00-18.00); BUN/Creat Ratio 17.27 Ratio (12.00-20.00); Blood Urea Nitrogen 20.9 mg/dL (9.0-27.0); Calcium 8.7 mg/dL (8.7-10.3); Carbon Dioxide 21.7 mmol/L (20.0-27.5); Non-African American GFR(CKD) 58.2 (60.0-200.0); Potassium 4.2 mmol/L (3.5-5.5)
--- NOTE | 2021-06-29 10:04 | P.PN ---
Subjective Progress Note Date: 06/29/21 This is a very pleasant 76-year-old male patient with known history of skin cancer, occasional alcohol use, previous hernia repair. Yesterday he was out in chart up on a step ladder approximately 10 feet high and was cutting a branch down from the tree. When the parents follow his letter knocked him off the ladder he landed on his left side into the grass. He presented here with left- sided chest discomfort worsening with deep breathing. He also had left hip pain. Unclear if he hit his head. Denied any loss of consciousness. Left hip x-rays revealed no evidence of fracture. Chest x-ray revealed no active cardiopulmonary process. Normal heart. Computed tomography scan of the head and C-spine revealed mild left sided scalp soft tissue swelling. No acute intracranial abnormalities. Minor degenerative changes in the cervical spine. No fracture. Computed tomography scan of the chest abdomen and pelvis revealed acute fracture of the left posterior 11th rib. Infiltrate and atelectasis at the lung bases. Small left-sided pneumothorax. Small left pleural effusion consistent with hemothorax. There is a nondisplaced fracture of the lateral mass of the sacrum on the left side as well as a very likely a nondisplaced hairline left acetabular fracture. There is fracture of the left ischium. EKG reveals sinus rhythm without acute ST or T wave abnormalities. White count 9.8. Hemoglobin 10.8. Platelet count 193. Urine drug screen positive for opiates. The patient did receive morphine sulfate via EMS. Serum alcohol level less than 10. The patient is seen today in consultation on the regular medical floor. He is currently sitting up at the bedside. Awake and alert in no acute distress. He is still having quite a bit of left-sided chest discomfort. Left hip pain. He is being treated with [place] [id number] one to 2 tablets as needed. Alternating with Dilaudid. The patient is seen today June 28 2021 in follow-up on the regular medical floor. He is currently sitting up in bed. Awake and alert in no acute distress. Maintaining O2 saturation in the low 90s on room air. chest x-ray continues to revealed some left-sided pleural effusion, hemothorax. Afebrile. Hemodynamically stable. He is working well with the incentive spirometer. White count 11.4. Hemoglobin 9.9. Platelets 160. Sodium 134. Potassium 4.2. BUN 17.9. Creatinine 1.1. appendectomy is on heparin for DVT prophylaxis. Pain managed with [place] alternating with Dilaudid. The patient is seen today 06/29/2021 in follow-up on the regular medical floor. He is currently sitting up in bed. Awake and alert in no acute distress. Maintaining good O2 saturations in the 90s on room air. Continues to work well with the incentive spirometer. His pain is well controlled. Ultrasound of the left chest revealed a small left pleural effusion with a 6.0 cm measurement. Follow-up computed tomography scan of the chest revealed a small left-sided pneumothorax, slightly larger compared to previous CAT scan. Multiple left rib fractures with right sixth rib fracture. Small left-sided pleural effusion with incomplete collapse of the left lower lobe. Progressed compared to previous. White count 11.7. Hemoglobin 10.6. Platelet count 174. Sodium 133. Potassium 4.2. BUN 21. Creatinine 1.2. He remains on DuoNeb inhalations. Heparin for DVT prophylaxis. Objective - Vital Signs Vital signs: Vital Signs Temp 98.0 F 06/29/21 05:00 Pulse 77 06/29/21 08:18 Resp 18 06/29/21 05:00 BP 136/68 06/29/21 05:00 Pulse Ox 94 L 06/29/21 08:09 Intake & Output 06/28/21 06/29/21 06/29/21 18:59 06:59 18:59 Intake Total 420 120 Output Total 100 Balance 320 120 Intake: Oral 420 120 Output: Urine 100 Other: Voiding Method Urinal Urinal # Voids 2 # Bowel Movements 1 - Exam GENERAL EXAM: Alert, very pleasant 76-year-old gentleman, on room air, fairly comfortable in no apparent distress. HEAD: Abrasion over the right eye. Normocephalic. EYES: Normal reaction of pupils, equal size. NOSE: Clear with pink turbinates. THROAT: No erythema or exudates. NECK: No masses, no JVD. CHEST: No chest wall deformity. LUNGS: Equal air entry with crackles in the left lung base, diminished. CVS: S1 and S2 normal with no audible murmur, regular rhythm. ABDOMEN: No hepatosplenomegaly, normal bowel sounds, no guarding or rigidity. SPINE: No scoliosis or deformity SKIN: No rashes CENTRAL NERVOUS SYSTEM: No focal deficits, tone is normal in all 4 extremities. EXTREMITIES: There is no peripheral edema. No clubbing, no cyanosis. Peripheral pulses are intact. - Labs CBC & Chem 7: 06/29/21 06:37 06/29/21 06:37 Labs: Abnormal Lab Results - Last 24 Hours (Table) 06/29/21 06/29/21 Range/Units 06:37 06:37 WBC 11.77 H (4.50-10.00) X 10*3/uL RBC 3.50 L (4.40-5.60) X 10*6/uL Hgb 10.6 L (13.0-17.0) g/dL Hct 33.2 L (39.6-50.0) % MCHC 31.9 L (32.0-37.0) g/dL Neutrophils # 8.23 H (1.80-7.70) X 10*3/uL Sodium 133 L (135-145) mmol/L Est GFR (CKD-EPI)NonAf 58.2 L (60.0-200.0) Assessment and Plan Assessment: 1 Trauma, status post fall from stepladder approximately 10 feet. Fracture to the posterior 11th rib. Nondisplaced fracture of the lateral mass of the sacrum on the left side and likely a nondisplaced hairline left acetabular fracture. There is fracture of the left ischium. 2 Left-sided chest pain on inhalation secondary to trauma and 11th rib fracture along with infiltrate and atelectasis of the posterior left lower lobe. Very small left pneumothorax less than 3%. Follow-up computed tomography scan of the chest from 06/28/2021 revealed a small left-sided pneumothorax, slightly larger compared to previous. Multiple left rib fractures with the right sixth rib fracture. Small left sided pleural effusion with incomplete collapse of the lef t lower lobe. Ultra sound of the chest revealed a 6.0 cm pocket on the left pleural effusion. 3 Left hip pain secondary to above 4 Anemia with a presenting hemoglobin 12.1, currently 10.6 5 History of skin cancer Plan: The patient was seen and evaluated CAT scan of the chest, ultrasound and labs reviewed Stable from the pulmonary standpoint Cleared for discharge once cleared by surgical services Continue to work with the incentive spirometer Adequate pain control Follow-up in our office in 1-2 weeks' I have personally seen and examined the patient, performed the documentation and the assessment and plan as written. Number of minutes spent on the visit: 10.
[2021-06-29] MEDS: HYDROcodone/APAP 5-325MG 1 EACH TAB PO PRN (14:27)
--- NOTE | 2021-06-29 16:33 | P.PN ---
Subjective Progress Note Date: 06/29/21 Principal diagnosis: Status post fall Patient doing well today. Pain is well-controlled. No shortness of breath at this time. He has been cleared for discharge by pulmonary and thoracic surgery. Awaiting bed. Objective - Vital Signs Vital signs: Vital Signs Temp 98.0 F 06/29/21 12:16 Pulse 66 06/29/21 12:16 Resp 16 06/29/21 12:16 BP 127/62 06/29/21 12:16 Pulse Ox 96 06/29/21 12:16 Intake & Output 06/28/21 06/29/21 06/29/21 18:59 06:59 18:59 Intake Total 420 120 Output Total 100 Balance 320 120 Intake: Oral 420 120 Output: Urine 100 Other: Voiding Method Urinal Urinal # Voids 2 # Bowel Movements 1 - Exam Chest: Equal breath sounds, mild tenderness Abdomen: Soft, nontender, nondistended - Labs CBC & Chem 7: 06/29/21 06:37 06/29/21 06:37 Labs: Abnormal Lab Results - Last 24 Hours (Table) 06/29/21 06/29/21 Range/Units 06:37 06:37 WBC 11.77 H (4.50-10.00) X 10*3/uL RBC 3.50 L (4.40-5.60) X 10*6/uL Hgb 10.6 L (13.0-17.0) g/dL Hct 33.2 L (39.6-50.0) % MCHC 31.9 L (32.0-37.0) g/dL Neutrophils # 8.23 H (1.80-7.70) X 10*3/uL Sodium 133 L (135-145) mmol/L Est GFR (CKD-EPI)NonAf 58.2 L (60.0-200.0) Assessment and Plan (1) Fall from ladder Narrative/Plan: Patient doing better day by day. Continue incentive spirometry. Tentatively plan discharge tomorrow to rehab. Management of small pneumothorax and effusion per pulmonary and thoracic surgery. Current Visit: Yes Status: Acute Code(s): W11.XXXA - FALL ON AND FROM LADDER, INITIAL ENCOUNTER SNOMED Code(s): 50781206
[2021-06-30] MEDS: KETOROLAC 15 MG/ML 1 ML VIAL IVP SCH ×3 (00:36→11:59)
[2021-06-30] MEDS: IPRATROPIUM-ALBUTEROL 3 ML NEB INHALATION SCH ×2 (08:17→11:56)
[2021-06-30] MEDS: ZINC SULFATE 220 MG CAP PO SCH (08:18)
[2021-06-30] MEDS: PANTOPRAZOLE 40 MG TABLET PO SCH (08:18)
[2021-06-30] MEDS: HEPARIN SODIUM,PORCINE/PF 5,000 UNIT/0.5 ML SYRINGE SQ SCH (08:18)
--- NOTE | 2021-06-30 09:56 | P.DS ---
Providers Date of admission: 06/26/21 18:47 Expected date of discharge: 06/30/21 Attending physician: Brenden Payton Consults: 06/26/21 18:45 Consult Physician Routine Consulting Provider: Cindi Siegel Consult Reason/Comments: Hemopneumothorax, rib fracture Do you want consulting provider notified?: Yes 06/27/21 08:41 Consult Physician Routine Consulting Provider: Brian Packer Consult Reason/Comments: fracture of sacrum, left acetabular and ischium Do you want consulting provider notified?: Yes 06/27/21 08:54 Consult to Anesthesia Routine Consulting Provider: Anesthesia,Services Consult Reason/Comments: Pain managment post trauma 06/27/21 13:18 Consult Physician Routine Consulting Provider: Ansley Lane Consult Reason/Comments: medical management Do you want consulting provider notified?: Yes 06/28/21 11:09 Consult Physician Routine Consulting Provider: John Guzmán Consult Reason/Comments: in pt rehab Do you want consulting provider notified?: Yes 06/28/21 14:08 Consult Physician Routine Consulting Provider: Georges Beltran Consult Reason/Comments: Hemopneumothorax Do you want consulting provider notified?: Yes Primary care physician: Stated None - Discharge Diagnosis(es) (1) Fall from ladder Patient was admitted after falling from a ladder. Patient found to have bilateral rib fractures, pneumothorax, hemothorax, fracture of the pelvis as well. Patient is nonweightbearing per orthopedics on one of his extremities. Gradually patient has improved during this hospital stay. Consults have been placed orthopedics, pulmonary, thoracic surgery, pain services. Patient says his pain is gradually improving. Denies shortness of breath currently. Some pain with coughing. Tolerating diet. Vital signs of been stable. Plan is for discharge to rehab today. Follow-up with pulmonary and orthopedics postdischarge. Current Visit: Yes Status: Acute Plan - Discharge Summary Discharge Rx Participant: No New Discharge Prescriptions: No Action Zinc Gluconate [Zinc] 50 mg PO DAILY Turmeric Root Extract [Turmeric] 500 mg PO DAILY Vitamin B Complex 1 cap PO DAILY Garlic 100 mg PO DAILY Ubidecarenone [Co Q-10] 100 mg PO DAILY Discharge Medication List Garlic 100 mg PO DAILY 06/26/21 [History] Turmeric Root Extract [Turmeric] 500 mg PO DAILY 06/26/21 [History] Ubidecarenone [Co Q-10] 100 mg PO DAILY 06/26/21 [History] Vitamin B Complex 1 cap PO DAILY 06/26/21 [History] Zinc Gluconate [Zinc] 50 mg PO DAILY 06/26/21 [History] Follow up Appointment(s)/Referral(s): Jorge Alberto Reza, PAC [PHYSICIAN SENIOR ENGINEERING TEAM LEADER] - 2 Weeks (Patient may follow-up with Jorge Alberto Reza PA-C or Dr. Anderson Packer at [facility] in 2-3 weeks following discharge. ) None,Stated [Primary Care Provider] - 1-2 days Activity/Diet/Wound Care/Special Instructions: 1. Strict nonweightbearing on the left lower extremity 2. Patient may use walker to aid in ambulation as needed 3. Weightbearing as tolerated on the left lower extremity 4. Avoid excessive activities of the left lower extremity
[2021-06-30 11:41] VITALS: BP 129/67; RESP 17; TEMP 98.2
[2021-06-30 12:08] VITALS: PULSE 86
--- NOTE | 2021-06-30 21:34 | P.PN ---
Subjective Progress Note Date: 06/29/21 Principal diagnosis: Trauma, status post fall from stepladder approximately 10 feet. Fracture 11th rib. Nondisplaced fracture of the lateral mass of the sacrum on the left side a nd likely a nondisplaced hairline left acetabular fracture. There is fracture of the left ischium Left-sided chest pain on inhalation secondary to trauma and 11th rib fracture along with infiltrate and atelectasis of the posterior left lower lobe 76-year-old male patient with known history of skin cancer, occasional alcohol use, previous hernia repair. Yesterday he was out in chart up on a step ladder approximately 10 feet high and was cutting a branch down from the tree. When the parents follow his letter knocked him off the ladder he landed on his left side into the grass. He presented here with left-sided chest discomfort worsening with deep breathing. He also had left hip pain. Unclear if he hit his head. Denied any loss of consciousness. Left hip x-rays revealed no evidence of fracture. Chest x-ray revealed no active cardiopulmonary process. Normal heart. Computed tomography scan of the head and C-spine revealed mild left sided scalp soft tissue swelling. No acute intracranial abnormalities. Minor degenerative changes in the cervical spine. No fracture. Computed tomography scan of the chest abdomen and pelvis revealed acute fracture of the left posterior 11th rib. Infiltrate and atelectasis at the lung bases. Small left-sided pneumothorax. Small left pleural effusion consistent with hemothorax. There is a nondisplaced fracture of the lateral mass of the sacrum on the left side as well as a very likely a nondisplaced hairline left acetabular fracture. There is fracture of the left ischium. EKG reveals sinus rhythm without acute ST or T wave abnormalities. White count 9.8. Hemoglobin 10.8. Platelet count 193. Urine drug screen positive for opiates. The patient did receive morphine sulfate via EMS. Serum alcohol level less than 10. Objective - Vital Signs Vital signs: Vital Signs Temp 98.0 F 06/29/21 05:00 Pulse 79 06/29/21 11:53 Resp 18 06/29/21 05:00 BP 136/68 06/29/21 05:00 Pulse Ox 94 L 06/29/21 08:09 Intake & Output 06/28/21 06/29/21 06/29/21 18:59 06:59 18:59 Intake Total 420 120 Output Total 100 Balance 320 120 Intake: Oral 420 120 Output: Urine 100 Other: Voiding Method Urinal Urinal # Voids 2 # Bowel Movements 1 - Exam - Constitutional General appearance: Present: average body habitus, cooperative, no acute distress - EENT Eyes: Present: anicteric sclerae, EOMI, PERRLA, normal appearance ENT: Present: hearing grossly normal, normal oropharynx Ears: bilateral: normal - Neck Neck: Present: normal ROM. Absent: lymphadenopathy, rigidity, thyromegaly Carotids: negative: bruit present Thyroid: bilateral: normal size, negative: enlarged, nodule - Respiratory Respiratory: bilateral: CTA, negative: rales, rhonchi, wheezing - Cardiovascular Rhythm: regular Heart sounds: normal: S1, S2 Abnormal Heart Sounds: Absent: systolic murmur, diastolic murmur - Gastrointestinal General gastrointestinal: Present: normal bowel sounds, soft. Absent: distended, organomegaly, tenderness - Genitourinary Genitourinary Comment(s): deferred - Integumentary Integumentary: Present: normal turgor. Absent: jaundiced, rash, ulcer - Neurologic Neurologic: Present: CNII-XII intact. Absent: focal deficits - Musculoskeletal Musculoskeletal: Present: gait normal, strength equal bilaterally - Psychiatric Psychiatric: Present: A&O x's 3, appropriate affect, intact judgment & insight - Labs CBC & Chem 7: 06/29/21 06:37 06/29/21 06:37 Labs: Abnormal Lab Results - Last 24 Hours (Table) 06/29/21 06/29/21 Range/Units 06:37 06:37 WBC 11.77 H (4.50-10.00) X 10*3/uL RBC 3.50 L (4.40-5.60) X 10*6/uL Hgb 10.6 L (13.0-17.0) g/dL Hct 33.2 L (39.6-50.0) % MCHC 31.9 L (32.0-37.0) g/dL Neutrophils # 8.23 H (1.80-7.70) X 10*3/uL Sodium 133 L (135-145) mmol/L Est GFR (CKD-EPI)NonAf 58.2 L (60.0-200.0) Assessment and Plan Assessment: Trauma, status post fall from stepladder approximately 10 feet. Fracture to 11th rib. Nondisplaced fracture of the lateral mass of the sacrum on the left side and likely a nondisplaced hairline left acetabular fracture. There is fracture of the left ischium. Left-sided chest pain on inhalation secondary to trauma and 11th rib fracture along with infiltrate and atelectasis of the posterior left lower lobe. Very small left pneumothorax less than 3%. Follow-up computed tomography scan of the chest from 06/28/2021 revealed a small left-sided pneumothorax, slightly larger compared to previous. Multiple left rib fractures with the right sixth rib fracture. Small left sided pleural effusion with incomplete collapse of the left lower lobe. Ultra sound of the chest revealed a 6.0 cm pocket on the left pleural effusion. Left hip pain secondary to above Anemia with a presenting hemoglobin 12.1, currently 10.6 History of skin cancer -- Patient is recommended incentive spirometry; improve ambulation; adequate pain control; pulmonary has cleared patient for discharge to follow-up as an outpatient
== END 2021-06-30 12:50 | DRG 964 ==
LOC: EC 16:18 → 5NMEDONC 18:47
PROVIDERS: ADMIT Surgery; ATTEND Surgery
DX: S27.2XXA Traumatic hemopneumothorax, initial encounter (principal); S22.43XA Multiple fractures of ribs, bilateral, initial encounter for closed fracture; S32.602A Unspecified fracture of left ischium, initial encounter for closed fracture; S32.402A Unspecified fracture of left acetabulum, initial encounter for closed fracture; J98.11 Atelectasis; S32.10XA Unspecified fracture of sacrum, initial encounter for closed fracture; S27.321A Contusion of lung, unilateral, initial encounter; J90 Pleural effusion, not elsewhere classified; I10 Essential (primary) hypertension; G57.93 Unspecified mononeuropathy of bilateral lower limbs; D64.9 Anemia, unspecified; S00.81XA Abrasion of other part of head, initial encounter; R26.2 Difficulty in walking, not elsewhere classified; M19.90 Unspecified osteoarthritis, unspecified site; W11.XXXA Fall on and from ladder, initial encounter; Z85.828 Personal history of other malignant neoplasm of skin; K59.00 Constipation, unspecified; Z87.891 Personal history of nicotine dependence; Z80.1 Family history of malignant neoplasm of trachea, bronchus and lung; Z86.010 Personal history of colon polyps; Z98.890 Other specified postprocedural states; Z86.16 Personal history of COVID-19
CPT/HCPCS: 36415; 70450; 71045; 71046; 71260; 72125; 73502; 74177; 76604; 80048; 80053; 80306; 80320; 81001; 83605; 85025; 85610; 85730; 86850; 86900; 86901; 93005; 94640; 94760; 96361; 96374; 96375; 96376; 99285